=== PATIENT | female | born 1950 | race Caucasian/White ===

== ENCOUNTER 2016-12-20 08:50 | Inpatient (IN) | payer BC ==
[2016-12-20] MEDS ORDERED: Dexamethasone IV* 4 MG/ML 1 ML (4 MG) IV SLOW PU ONE (09:37)
[2016-12-20] MEDS ORDERED: NS 0.9% 1000 ML* 1,000 ML IV ONE ×2 (09:38→12:28)
--- NOTE | 2016-12-20 09:48 | ED ---
Back Pain - HPI Summary HPI Summary: Patient is referred to the ED after undergoing emergent MRI ordered by her spinal doctor Dr. Jade from [place]. According to the patient she has had a year of pain, rash and burning in her left leg that has been evaluated by neurosurgery, dermatology and her PCP without relief. 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 She denies known injury that started this pain. She had an MRI in February 2016 that showed bulging disks but her pain is much worse now. She says she hobbles around, has weakness in the leg and foot drop when she walks. She has had increased urinary urgency and frequency without tami constipation. She denies fevers, chills, or illness otherwise. - History of Current Complaint Chief Complaint: EDBackInjuryPain Stated Complaint: BACK PAIN Time Seen by Provider: 12/20/16 09:02 Hx Obtained From: Patient, Family/Supervisor Shipping Onset/Duration: Gradual Onset, Lasting Weeks, Worse Since - last February Onset/Duration: Atraumatic Timing: Constant Severity Initially: Mild Severity Currently: Severe Pain Intensity: 2 Character: Sharp, Aching, Burning Aggravating Symptom(s): Movement, Bending, Walking Alleviating Symptom(s): Nothing Associated Signs And Symptoms: Positive: Weakness, Numbness, Tingling Related History: Previous Back Injury - Allergies/Home Medications Allergies/Adverse Reactions: Allergies Allergy/AdvReac Type Severity Reaction Status Date / Time Doxycycline Allergy CONGESTION, Verified 12/19/16 14:10 NECK STIFFNESS, THROAT CLOSES Erythromycin Allergy CONGESTION, Verified 12/19/16 14:10 NECK STIFFNESS, THROAT CLOSES Hydromorphone [From Dilaudid] Allergy SEVERE Verified 12/19/16 14:10 DEPRESSED RESPIRATION Prednisone Allergy SEVERE Verified 12/19/16 14:10 ACID REFLUX, ESOPHAGUS EROSION Tetracyclines & Related Allergy CONGESTION, Verified 12/19/16 14:10 NECK STIFFNESS, THROAT CLOSES ENVIRONMENTAL Allergy Unknown Uncoded 12/19/16 14:10 Reaction Details Home Medications: Home Medications Citalopram TAB* [CeleXA TAB*] 40 mg PO DAILY 12/20/16 [History Confirmed ] Gabapentin CAP(*) [Neurontin 300 CAP(*)] 300 mg PO BEDTIME 12/20/16 [History Confirmed 12/20/16] Hydrochlorothiazide TAB* [Hydrodiuril TAB*] 12.5 mg PO DAILY 12/20/16 [History Confirmed 12/20/16] Levalbuterol HFA INHALER* [Xopenex Hfa Inhaler*] 2 puff INH Q6H PRN 12/20/16 [ History Confirmed 12/20/16] Levothyroxine TAB* [Synthroid TAB*] 50 mcg PO QAM 12/20/16 [History Confirmed ] Naproxen Sodium [Naproxen Sodium 220 mg] 220 - 440 mg PO Q8HR PRN 12/20/16 [ History Confirmed 12/20/16] Oxycodone TAB(NF) [Oxycodone HCl 10 MG] 10 mg PO Q6H PRN 12/20/16 [History Confirmed 12/20/16] Verapamil HCl [Verapamil HCl ER] 120 mg PO DAILY 12/20/16 [History Confirmed 03/30] clonazePAM TAB(*) [KlonoPIN TAB(*)] 0.5 mg PO BID 12/20/16 [History Confirmed ] metFORMIN* [Glucophage 500 MG TAB *] 500 mg PO DAILY 12/20/16 [History Confirmed 12/20/16] traZODone TAB* [Desyrel TAB*] 50 mg PO BEDTIME 12/20/16 [History Confirmed 12/20] PMH/Surg Hx/FS Hx/Imm Hx Endocrine/Hematology History: Reports: Hx Diabetes - TREATED, Hx Thyroid Disease - HYPOTHYROIDISM Cardiovascular History: Reports: Hx Coronary Artery Disease - CHOLESTEROL CONTROL WITH MEDICATION, Hx Hypertension - CONTROL WITH MEDICATION Denies: Hx Pacemaker/ICD Respiratory History: Reports: Hx Asthma - RESCUE INHALER GI History: Reports: Hx Gastroesophageal Reflux Disease History: Denies: Hx Renal Disease Musculoskeletal History: Comment Only: Other Musculoskeletal History - FIBROMYALGIA Sensory History: Reports: Hx Contacts or Glasses - WILL WEAR GLASSES DAY OF SURGERY Denies: Hx Hearing Aid Opthamlomology History: Reports: Hx Contacts or Glasses - WILL WEAR GLASSES DAY OF SURGERY Neurological History: Reports: Other Neuro Impairments/Disorders - RUPTURED LOWER BACK Psychiatric History: Reports: Hx Anxiety - CONTROL, Hx Depression Denies: Hx Panic Disorder - Surgical History Surgery Procedure, Year, and Place: 2005 CERVICAL FUSION AT C3,4,5 WITH PLATING , [place]. 1999 SINUS SURGERY REMOVAL OF POLYP, [place]. AGE 18 [place] [facility] [place] [facility] [place] WITHOUT STENTS 2013 Hx Anesthesia Reactions: Yes - SEVERE NAUSEA AND VOMITING, - NONE FOR LAST TWO SURGERIES Infectious Disease History: No Infectious Disease History: Denies: Traveled Outside the [place] in Last 30 Days - Family History Known Family History: Positive: None - Social History Occupation: Unemployed Lives: With Family Alcohol Use: Daily Substance Use Type: Reports: None Smoking Status (MU): Never Smoked Tobacco Review of Systems Positive: frequency, urgency. Negative: incontinence Positive: Myalgia Positive: Rash - left thigh. Negative: Bruising Positive: Weakness, Paresthesia, Numbness All Other Systems Reviewed And Are Negative: Yes Physical Exam Triage Information Reviewed: Yes Vital Signs On Initial Exam: Initial Vitals Temp Pulse Resp BP Pulse Ox 97.0 F 86 20 143/74 99 12/20/16 08:53 12/20/16 08:53 12/20/16 08:53 12/20/16 08:53 12/20/16 08:53 Vital Signs Reviewed: Yes Appearance: Positive: Well-Appearing, Pain Distress, Obese Skin: Positive: Warm, Skin Color Reflects Adequate Perfusion, Dry, Soft Head/Face: Positive: Normal Head/Face Inspection Eyes: Positive: EOMI, CHRISTOPHER, Conjunctiva Clear ENT: Positive: Hearing grossly normal Respiratory/Lung Sounds: Positive: Clear to Auscultation, Breath Sounds Present Cardiovascular: Positive: RRR, Pulses are Symmetrical in both Upper and Lower Extremities Abdomen Description: Positive: Nontender, Soft Bowel Sounds: Positive: Present Musculoskeletal: Positive: Limited @, Pain @. Negative: Edema Left, Edema Right Neurological: Positive: Sensory/Motor Intact, Alert, Oriented to Person Place, Time, Unable to Assess Gait. Negative: NV Bundle Intact Distally Psychiatric: Positive: Affect/Mood Appropriate AVPU Assessment: Alert - Eran Coma Scale Coma Scale Total: 15 Diagnostics - Vital Signs Vital Signs Temp Pulse Resp BP Pulse Ox 12/20/16 09:09 93 11 96 12/20/16 08:57 97.6 F 92 20 143/74 98 12/20/16 08:53 97.0 F 86 20 143/74 99 - Laboratory Result Diagrams: 12/20/16 09:45 12/20/16 09:45 Lab Statement: Any lab studies that have been ordered have been reviewed, and results considered in the medical decision making process. Back Pain Course/Dx - Course Course Of Treatment: Patient's case was discussed with multiple caregivers in multiple facilities to come up with the appropriate course of action given the new finding of neoplasm on her lumbar spine. I first spoke with MRI ordering physician, Dr. Jade, then Dr. Harris, neurosurgery at [facility]; Dr Rivas , [facility] [place]; and finally Dr. Nielsen, [facility] medicine. - Diagnoses Differential Diagnosis/HQI/PQRI: Positive: Aneurysm, Cauda Equina Syndrome, Compressive Cord Syndrome, Epidural Abscess, Fracture, Herniated Disc, Neoplasm , Strain, Sprain Provider Diagnoses: Neoplasm of lumbar spine - Provider Notifications Discussed Care Of Patient With: Dr. Nelson, ED attending Time Discussed With Above Provider: 09:30 Instructed by Provider To: Admit As Inpatient Discharge - Discharge Plan Condition: Fair Disposition: ADMITTED TO [facility]
[2016-12-20 09:55] LABS: Hematocrit 36 % (35-47); Mean Corpuscular HGB Conc 33 g/dl (31-36); Mean Corpuscular Hemoglobin 28 pg (27-31); Mean Corpuscular Volume 85 fL (80-97); Mean Platelet Volume 8 um3 (7.4-10.4); Red Blood Count 4.28 10^6/ul (4.0-5.4); Red Cell Distribution Width 14 % (10.5-15); White Blood Count 9.1 10^3/ul (3.5-10.8)
[2016-12-20 10:12] LABS: BUN/Creatinine Ratio 31.8 (8-20); C Reactive Protein 10.12 mg/L (< 5.00); Calcium 10.1 mg/dL (8.6-10.3); EGFR African American 86.6 (>60); EGFR Non-African American 67.3 (>60); Globulin 2.9 g/dL (2-4); Potassium 4.2 mmol/L (3.5-5.0); Total Bilirubin 0.2 mg/dL (0.2-1.0); Total Protein 6.9 g/dL (6.4-8.9)
[2016-12-20] MEDS ORDERED: Ondansetron INJ* 2 MG/ML VIAL IV ONE (12:28)
[2016-12-20] MEDS ORDERED: Morphine INJ* 4 MG/ML 1 ML SYRINGE IV ONE (12:28)
[2016-12-20] MEDS ORDERED: Iodixanol* (CONTRAST) 320 MG/ML 100 ML SDV IV ONE (14:11)
[2016-12-20] MEDS ORDERED: NS 0.9% 1000 ML* 1,000 ML IV SCH (15:00)
[2016-12-20] MEDS ORDERED: Acetaminophen TAB* 325 MG PO PRN (15:00)
[2016-12-20] MEDS ORDERED: Ondansetron INJ* 2 MG/ML VIAL IV PRN (15:00)
[2016-12-20] MEDS ORDERED: Morphine ORAL CONCENTRATE* 5 MG/0.25 ML ORAL.SYRIN PO PRN (15:08)
[2016-12-20] MEDS ORDERED: Levalbuterol HFA INHALER* 1 PUFF MDI INH PRN (15:08)
[2016-12-20] MEDS ORDERED: Dextrose 50% Syringe 50 ML* 25 GM/50 ML SYRINGE IV PUSH PRN (15:19)
[2016-12-20] MEDS ORDERED: Albuterol 2.5 MG/3 ML NEB.SOL* (0.083%) INH PRN (15:19)
--- NOTE | 2016-12-20 16:32 | HP ---
HISTORY AND PHYSICAL:* ADDENDUM: DATE OF ADMISSION: 12/20/16 Dulce Gonzalez is a 66-year-old female with history of hypertension and diabetes who has had problems with back pain and footdrop for several months now. She was evaluated by the neurosurgeon at [facility] and an MRI was performed which showed soft tissue mass at the left hemivertebral body of L5 with extensive epidural extension with severe narrowing of the central canal. The patient is going to be admitted, evaluated by Radiation Oncology and possibly Neurosurgery if needed and recommended. For further details of the patient's presentation and plan, please see history and physical dictated by Dk Villaseñor on 12/20/16, with which I agree. [id number]/[facility] #: [id number] MTDD
--- NOTE | 2016-12-20 16:49 | HP ---
ATTENDING PHYSICIAN'S ADDENDUM NOW INCLUDED ON THIS REPORT CC: Dr. Wilson; Dr. Rivas; Dr. Combs * HISTORY AND PHYSICAL: DATE OF ADMISSION: 12/20/16 PRIMARY CARE PROVIDER: Dr. Wilson. ATTENDING PHYSICIAN WHILE IN THE HOSPITAL: Dr. Meghna Nielsen * (report dictated by Dk Villaseñor NP). CONSULTING ONCOLOGIST: Dr. Rivas. CONSULTING RADIATION ONCOLOGIST: Dr. Combs. CHIEF COMPLAINT: 1. Back pain. 2. Abnormal MRI. HISTORY OF PRESENT ILLNESS: Ms. Gonzalez is a 66-year-old female patient. She has a history of hypothyroidism, hypertension, diabetes, asthma, also carries a history of hyperlipidemia. She comes in to the ER today stating that for the last year, better part of the year, she has been dealing with having back discomfort and mostly in the lower back, shooting down the left leg with an associated rash off and on to the left lower extremity as well. She states that she had been following closely with Dr. Wilson. She had been evaluated by Dr. Lynn this past , was given epidural injections which seemed to be helping the pain. She says that on November 19, she noticed that the second epidural made things worse. She felt that she was having actually new pain in her sacrum and tailbone area. She was evaluated by Dr. Wilson beginning of the week here. The sacral area was palpated by Dr. Wilson. The patient had experienced intense pain and she was referred for a repeat MRI. She had had an MRI previously in February 2016 and the patient though because of newer symptoms was referred for a repeat MRI, which she underwent today, and ultimately they found a tumor in the L5 area. The patient denied having any weakness to the extremities. She denied having any urinary symptoms. She denied having any weakness to the lower extremities. She does state that she has been having difficulty walking the last 2 months that her legs do become weak on her after walking. She denied any chest pain. No fevers. No chills. She denied having any abdominal pain. Because of progression of the symptoms, worsening of the symptoms, and the new findings on the MRI, particularly this lumbar mass and the fact that she was having increasing pain, we were asked to evaluate on admission. PAST MEDICAL HISTORY: Significant for: 1. Hypothyroidism. 2. Hypertension. 3. Diabetes. 4. Asthma. 5. Hyperlipidemia. PAST SURGICAL HISTORY: She has had a cervical spine fusion. HOME MEDICATIONS: Include: 1. Xopenex 2 puffs inhaled every 6 hours as needed. 2. Naproxen 1 to 2 tablets every 8 hours as needed. 3. Verapamil 120 mg daily. 4. Glucophage 500 mg daily. 5. Celexa 40 mg daily. 6. Clonazepam 0.5 mg p.o. b.i.d. 7. Hydrochlorothiazide 12.5 mg daily. 8. Synthroid 50 mcg daily. 9. Oxycodone 10 mg every 6 hours as needed. 10. Gabapentin 300 mg p.o. bedtime. 11. Trazodone 50 mg daily. ALLERGIES TO MEDICATIONS: Include DOXY, ERYTHROMYCIN, DILAUDID, PREDNISONE, and TETRACYCLINE. FAMILY HISTORY: Reviewed and noncontributory. SOCIAL HISTORY: She does not smoke. She occasionally drinks alcohol. She is . Surrogate decision maker is her . REVIEW OF SYSTEMS: There is no documented fever. She denied having any significant weight change. There was no double vision. She denies having any ear discharge. There is no rhinorrhea. No sore throat. No thyroid enlargement. She denies having any chest pain. There is no orthopnea. No nocturnal dyspnea. There is no abdominal pain. No nausea. No vomiting. No dysuria. No loss of consciousness. No pruritus and no skin ulcerations. Review of 14 systems completed, all others negative. PHYSICAL EXAMINATION GENERAL: At this time, Ms. Gonzalez is a 66-year-old female patient. She is sitting in the ER stretcher. She does not appear to be in any acute distress. VITAL SIGNS: Blood pressure 153/59, pulse 104, respirations 18, O2 sat 98%, and temperature 97.6. HEENT: Head is atraumatic and normocephalic. Eyes: EOMs are intact. Sclerae anicteric and not pale. Throat: Oral mucosa appears to be moist. No oropharyngeal erythema. NECK: Supple. LUNGS: Clear to auscultation bilaterally. No wheezes, rales, or rhonchi. HEART: Sounds S1, S2. Regular rate and rhythm. She is tachycardic. ABDOMEN: Soft, flat, and nontender. Bowel sounds present. EXTREMITIES: Pulses 2+ throughout. She actually is able to move all 4 extremities when lying in the bed. She had 5/5 strength throughout. RECTAL: She had good rectal tone. NEUROLOGIC: She is awake, alert. She is oriented x3. Her tongue is midline. Information Systems Administrator are equal. She had no gross focal deficits. SKIN: Intact. She does have a rash noted to the left lower extremity and you can see excoriations from scratching. It appears to be healing rash at this point. No vesicles were noted and no sloughing of the skin. LABORATORY DATA AND DIAGNOSTIC STUDIES: Today revealed a WBC of 9.1, RBC of 4.28, hemoglobin 12.0, hematocrit 36, platelet count of 424. The sodium was 134 , potassium 4.2, chloride was 97, bicarb 28, BUN 27, creatinine 0.85, glucose 109, calcium 10.1. Total bili 0.2, AST 22, ALT 18, CRP of 10. Albumin 4. She did have a lumbar spine MRI which revealed impression: There is soft tissue mass consistent with neoplasm centered within the left hemivertebral body of L5 with extensive epidural extension with severe narrowing of the central canal at L3- 4, L4-5, to a lesser extent at L5-S1, associated foraminal extension of the tumor with multilevel foraminal narrowing described above. The findings were discussed with Dr. Bowie at approximately 8:50 a.m. Old medical records were reviewed. ASSESSMENT AND PLAN: Ms. Gonzalez is a 66-year-old female patient coming in to the ER today with complaints of back pain and now found to have an abnormal MRI. Hospitalist service was asked to evaluate for admission. She will be admitted under inpatient status for: 1. Spinal lesion concerning for neoplasm: At this point, I did touch base with Dr. Combs and Dr. Rivas who both will be evaluating the patient. Dr. Rivas felt that neurosurgeon does not need to be evaluating currently. She is not having any motor deficits at this point. The plan is to get a CT of the abdomen and pelvis to make sure that there is not any other primary site. Unfortunately, if this is a lymphoma, giving steroids may be the treatment, and actually may make it harder or near impossible to get a biopsy site. So, at this point, I did put in for a CT- guided biopsy with Dr. Li, which Dr. Rivas spoke to Dr. Politi about this. We ordered a CT of the chest, abdomen, and pelvis to see if there is any other site that could be biopsied. Dr. Rivas and Dr. Combs will be evaluating. 2. Hypothyroidism: Continue Synthroid. 3. Hypertension: Continue her verapamil. I am holding the hydrochlorothiazide. 4. Diabetes: We will put her on lispro sliding scale. 5. Asthma: P.r.n. Albuterol has been ordered. 6. Hyperlipidemia: Continue current medical regimen. 7. DVT prophylaxis: She is high risk. She will be placed on heparin subcu. 8. Code status: Full code. TIME SPENT: Time spent on the admission was approximately 70 minutes; greater than half the time was spent face to face with the patient obtaining my history and physical, other half the time spent going over the plan of care with the patient and implementing plan of care. I did discuss the plan of care with my attending, Dr. Nielsen; she is in agreement. DK VILLASEÑOR NP ADDENDUM: DATE OF ADMISSION: 12/20/16 Dulce Gonzalez is a 66-year-old female with history of hypertension and diabetes who has had problems with back pain and footdrop for several months now. She was evaluated by the neurosurgeon at [place] and an MRI was performed which showed soft tissue mass at the left hemivertebral body of L5 with extensive epidural extension with severe narrowing of the central canal. The patient is going to be admitted, evaluated by Radiation Oncology and possibly Neurosurgery if needed and recommended. For further details of the patient's presentation and plan, please see history and physical dictated by Dk Villaseñor on 12/20/16, with which I agree. MEGHNA NIELSEN MD [id number]/[facility] #: [id number]/[facility] #: [id number] MYLES
[2016-12-20] MEDS: Morphine ORAL.SOLN 10 mg* 2 MG/ML UDC 5 ml PO PRN (17:17)
--- NOTE | 2016-12-20 17:58 | RAD ---
INDICATION: New mass L3 S1 of evaluate for primary tumor. COMPARISON: Correlation is made with a prior CT of the pelvis from March 06, 2016. TECHNIQUE: A CT scan of the chest, abdomen and pelvis was performed with intravenous and oral contrast following intravenous injection of 100 ml of Visipaque 320 nonionic contrast. Contiguous axial sections were obtained from the lung apices through the symphysis pubis. Images were reconstructed in the coronal and sagittal planes. FINDINGS: There is atelectasis present at both lung bases. The lungs are otherwise clear. No pleural effusion is present. No significant enlarged mediastinal or hilar lymph nodes are seen. The heart is within normal limits in size. No pericardial effusion is present. The thoracic aorta is normal in caliber. The liver and spleen are normal in size without significant focal abnormality. The liver is decreased in attenuation consistent with fatty infiltration. No calcific gallstones are seen. The pancreas appears to be within normal limits. The kidneys and adrenal glands appear normal in size. There is mild dilatation of the right renal calyces, pelvis and ureter consistent with mild hydronephrosis. No calculus or mass is seen. The urinary bladder appears to be within normal limits. No significant focal renal abnormality is seen. The aorta is normal in caliber and demonstrates homogeneous contrast opacification. No significant enlarged mesenteric, retroperitoneal or inguinal lymph nodes are seen. The stomach, small and large bowel appear nondistended. There is a moderate amount of retained stool present. There is a small periumbilical hernia containing fat. The uterus is normal in size and retroverted. No free intraperitoneal air or fluid is seen. The mass noted within the L4 vertebra and spinal canal at the L3-L4 and L4-L5 levels on the prior MRI study is not well visualized. Although there is decreased density and infiltration of the left L4 transverse process and likely a pathologic fracture of the transverse process. There is enlargement of the posterior aspect of the left psoas muscle correlating with the mass seen on the prior MRI study. There is heterogeneous density present in the upper portion of the body of the sternum which is nonspecific although may represent metastatic disease. No other focal osseous abnormalities are seen. IMPRESSION: 1. THE MASS SEEN IN THE L4 VERTEBRA IS BETTER SEEN ON THE MRI STUDY ALTHOUGH THERE IS DECREASED DENSITY AND LIKELY A PATHOLOGIC FRACTURE OF THE L4 TRANSVERSE PROCESS. THERE APPEARS TO BE EXTENSION OF DISEASE INTO THE LEFT PSOAS MUSCLE ALSO BETTER SEEN ON THE MRI STUDY. 2. THERE IS HETEROGENEOUS DENSITY IN THE STERNUM WHICH IS NONSPECIFIC ALTHOUGH MAY REPRESENT METASTATIC DISEASE. 3. MILD RIGHT HYDRONEPHROSIS WITHOUT EVIDENCE FOR CALCULUS OR MASS.
[2016-12-20] MEDS: Insulin LISPRO* 1 UNITS UNIT SUBCUT SCH (18:29)
[2016-12-20] MEDS ORDERED: Naproxen TAB* 250 MG ONE (18:49)
[2016-12-20] MEDS ORDERED: Naproxen TAB* 250 MG PO PRN (18:49)
[2016-12-20] MEDS: clonazePAM TAB(*) 0.5 MG PO SCH (20:32)
[2016-12-20] MEDS: traZODone TAB* 50 MG TAB PO SCH (20:33)
[2016-12-20] MEDS ORDERED: Senna TAB PO PRN (20:39)
[2016-12-20] MEDS ORDERED: Magnesium Hydroxide LIQ* 30 ML UDC PO ONE (20:39)
[2016-12-20] MEDS ORDERED: Gabapentin CAP(*) 300 MG PO SCH (21:00)
[2016-12-20] MEDS: Docusate CAP* 100 MG PO SCH (21:09)
[2016-12-20] MEDS: Cetirizine* 10 MG TAB PO SCH (21:09)
[2016-12-20] MEDS: Morphine INJ* 4 MG/ML 1 ML SYRINGE IV PRN (21:17)
--- NOTE | 2016-12-20 21:56 | CONS ---
CC: Dr. Wilson * CONSULTATION: DATE OF CONSULT: 12/20/16 REFERRING PHYSICIAN: Dk Villaseñor NP PRIMARY CARE: Dr. Wilson. REASON FOR CONSULTATION: Lumbar spine mass. HISTORY OF PRESENT ILLNESS: This is a 66-year-old female who developed pain in her left hip in January 2016. Originally thought to be a groin pull. She has pain that was in the hip, going down to the knees and going down to the foot. It can be very severe, 10/10 in intensity. She initially saw Dr. Wilson and was referred to pain clinic and Orthopedics within [place]. She had an MRI on 03/12/16 of the lumbar spine. Question of disk disease, but no bony lesions. No evidence of malignancy. She was treated conservatively with physical therapy , but this had only marginal success. By fall, she had been getting by and doing most of her daily activities. She went to [place] and then came back in September 2016. By the time she came back in September, it became difficult to walk and the pain became much more severe. It felt like it was two steps forward, one step back. She was seen by Dr. Guerin who ultimately performed spinal injections in October 2016. This seemed to work and on injection of the L3-L4 vertebral body, she had immediate relief of her pain down the leg. Unfortunately, several weeks later, pain recurred across her back into the abdomen and then again in the left hip. Pain again was very severe and not responding to medications. She had been taking Aleve 3 tablets 4 times a day, oxycodone 10 mg every 4 to 6 hours as well as Neurontin 600 mg every 4 to 6 hours and clonazepam 0.5 mg twice a day. Additionally, she started to develop difficulty walking approximately 2 to 3 weeks ago. Weakness on both sides, more on the left. Would take 4 steps and then lose her strength. She developed urinary urgency over the last 2 weeks, but still does have control of her urine. She has not had any changes in her bowel movements except for constipation associated with the narcotics. She has not had any fevers or chills, but she has had night sweats on starting oxycodone. She has lost 14 pounds since September and has a poor appetite. No shortness of breath. No chest pain. Also, she has a rash going down her left leg and up across her back on both sides. It is a papular rash that can be itchy. It started back in January 2016 with the pain and has never fully resolved. PAST MEDICAL HISTORY: 1. Diabetes. 2. Hypertension. 3. Arthritis. 4. Hypothyroidism. 5. Asthma. SURGERIES: 1. She had a C-spine fusion in 2013 after an accident. 2. She had a cardiac catheterization. MEDICATIONS: 1. Xopenex 2 puffs every 6 hours as needed. 2. Naproxen 1 to 2 tablets every 8 hours as needed, taking every 4 hours. 3. Verapamil 120 mg daily. 4. Glucophage 500 mg daily. 5. Celexa 40 mg daily. 6. Clonazepam 0.5 mg b.i.d. 7. Hydrochlorothiazide 12.5 daily. 8. Synthroid 50 mcg daily. 9. Oxycodone 10 mg every 6 hours, taking every 4. 10. Gabapentin 600 mg twice a day. 11. Trazodone 50 mg at bedtime. ALLERGIES: ERYTHROMYCIN, DOXYCYCLINE, DILAUDID, PREDNISONE, and TETRACYCLINE. FAMILY HISTORY: Extensive malignancy on her mother's side. Maternal grandmother had gallbladder cancer. Mother has 12 siblings, three of whom had breast cancer, three of whom had advanced skin cancer, one of whom had liver cancer, and one had a brain cancer. On the father's side, there is a history of smoking related to malignancy. SOCIAL HISTORY: , here with her son and she has 3 children. Does not smoke. Drinks only occasionally. 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 REVIEW OF SYSTEMS: As discussed in the HPI. Otherwise, 14-point review is negative. PHYSICAL EXAM: BP 152/59, pulse 104, respirations 18, sat 98%, temperature 97.6. HEENT: Oral mucosa moist. No active dental disease. No cervical or supraclavicular lymphadenopathy. Pupils are equal, round, and reactive to light. Lungs: Clear to auscultation. Heart: Regular rate and rhythm. S1, S2. No murmurs, rubs, or gallops. Abdomen: Nontender, nondistended. Good bowel sounds. No hepatosplenomegaly. Extremities: Good pulses, no edema. Skin : She has a diffuse papular rash, both on the left leg going up to the back and crossing the midline. She has itch cisneros on the back. No ulceration. Rectal: Deferred, but documented normal rectal tone on Dk Villaseñor's exam. Neurologic: She has strength of 5/5 on focal exam in all 4 extremities. Did not walk her. We did not test proximal muscle strength intensely. Neurologic: Alert and oriented x3. Grossly nonfocal. DIAGNOSTIC STUDIES/LAB DATA: She has normal counts with a hemoglobin of 12, creatinine 0.85, mildly elevated glucose, C-reactive protein of 10, and normal LFTs. She has white and red cells as well as trace esterase in the urine. CT of the chest, abdomen, and pelvis shows a mass in the L4 vertebral body seen on the MRI study as well as an L4 transverse process fracture and extension of disease into the left psoas muscle, called heterogeneity in the sternum, which is nonspecific and a mild right hydronephrosis without evidence of mass. 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 Extension of tumor to L5-S1 foramina. No other disease on the MRI. ASSESSMENT AND PLAN: A 66-year-old female with 1 year of pain, progressive, functional symptoms over the past 3 weeks who was found to have a bone lesion at L4- L5 with into muscle and into the area of the spinal cord. It appears to affect the cauda equina nerves. She has had very severe pain, not responding to multiple [id number] medications. Differential diagnosis includes sarcoma, metastatic solid tumor though no source found on the CT, lymphoma, plasmacytoma, multiple myeloma, T-cell lymphoma. 1. Case was reviewed with Dr. Li and Dr. Combs at length. We will need to get a biopsy on Friday morning and the mass on the lumbar spine is amenable to CT- guided biopsy. 2. I am concerned about giving steroids because if it is a lymphoma or myeloma , we may hamper our ability to make a diagnosis and provide comprehensive treatment. We will watch her neurologic symptoms over the weekend and try to avoid intervention. 3. CT scan essentially negative for disease outside of the lumbar spine, questionable sternal lesion. Ultimately, we will benefit from the PET scan as an outpatient. 4. For pain control, I would continue naproxen, but at a rational dose, 500 b.i.d. Continue Neurontin 600 b.i.d. Recommend morphine SR at 30 mg b.i.d. and then Dilaudid IV p.r.n. Hold Alejulissa on Friday for a biopsy on Friday. May be difficult to control pain if it is neuropathic from the mass. 5. We will send blood work today including SPEP, ESR, LDH, beta-2 microglobulin , serum free light chains, solid tumor tumor markers including CA 19-9, CEA, and CA- 125. 6. Continue to follow through the hospitalization. Possible radiation therapy on Friday after biopsy. [id number]/[facility] #: [id number] MTDD
[2016-12-20] MEDS ORDERED: Heparin VIAL(*) 5000 UNITS/ML VIAL (FIVE THOUSAND) SUBCUT SCH (22:00)
--- NOTE | 2016-12-21 02:41 | RADMED ---
CC: Dr. Rivas; Dr. Lori Wilson RADIATION ONCOLOGY CONSULTATION NOTE: DATE OF CONSULT: 12/20/16 DIAGNOSES: Back pain and lumbar spine lesion suspicious for malignancy. HISTORY OF PRESENT ILLNESS: Ms. Gonzalez is a 66-year-old woman with a history of back pain over more than a year. She has received steroid injections with some relief, but over the past 4 months, has had progressive symptoms with leg weakness and worsening radicular pain along with a rash on the left thigh and low back that waxes and wanes. With progression of symptoms, MRI scan of the lumbar spine was obtained this morning, identifying an extensive soft tissue mass around the left side of the lower lumbar spine approximately L5 level with paraspinal component and extension through the nerve roots wrapping around the cauda equina in the epidural space. She was evaluated through the emergency department and is being admitted to the hospital for further evaluation. CT scan of the chest, abdomen, and pelvis has been obtained and I did review along with Dr. Li, with a superficial reading showing no other obvious substantial findings to suggest widespread malignancy. She reports that she is up-to-date on colonoscopy and mammography, and has no known history of malignancy herself. No complaints with regard to urinary or bowel function, some numbness reported in a radicular pattern down the left leg. PAST MEDICAL HISTORY: Hypothyroidism, hypertension, diabetes, asthma, hyperlipidemia, back pain, spine surgery. MEDICATIONS: 1. Xopenex. 2. Naproxen. 3. Verapamil. 4. Glucophage. 5. Celexa. 6. Clonazepam. 7. Hydrochlorothiazide. 8. Synthroid. 9. Oxycodone. 10. Gabapentin. 11. Trazodone. ALLERGIES: TETRACYCLINE, ERYTHROMYCIN, DILAUDID, PREDNISONE. FAMILY HISTORY: Significant for her mother with history of skin cancer, and no other history of malignancy in her first-degree relatives, although there is significant cancer history on her mother's side of the family in more distant relatives. SOCIAL HISTORY: She is accompanied by her family, who are quite supportive. She is a nonsmoker, and drinks alcohol occasionally. REVIEW OF SYSTEMS: As in the history of present illness; otherwise, a complete review of systems is obtained from the patient, negative for additional significant findings. PHYSICAL EXAM: Vital Signs: Temperature 97.6, pulse rate 106, respiratory rate 18, oxygen saturation 93% on room air, blood pressure 153/69. In general, she is awake, alert, oriented, in no distress. Normocephalic, atraumatic. Sclerae are anicteric. Neck is supple with full range of motion. Midline trachea. No masses palpable in the neck or thyroid. Lungs: Symmetric air entry bilaterally. Cardiovascular: S1 and S2, tachycardic. Abdomen: Soft and nontender. No masses, no organomegaly. Extremities: No cyanosis, clubbing, or edema. There is a papular/vesicular rash involving the low back, left buttock, and left thigh with areas of excoriation and hyperpigmentation. Neurologic: Cranial nerves II through XII are intact. Strength is symmetric in proximal and distal muscle groups in the upper extremities, and in the lower extremities, somewhat limited by pain but she is able to produce resistance throughout, perhaps some weakness with hip flexion. Gait and balance not assessed. Cognition and memory are within normal limits. RADIOLOGY: Reviewed as in the history of present illness. ASSESSMENT AND PLAN: Dulce Gonzalez is a 66-year-old woman with gradual onset of severe low back pain with radicular component and some element of weakness and MRI showing significant soft tissue mass around the left side of the lumbar spine suspicious for malignancy. I did review her history as well as the radiographic findings, and discussed at some length with the patient and her family. With no known malignancy, and no other findings on CT to suggest a more extensive cancer problem, or other sites where a biopsy could be obtained, I do think the most important issue is to obtain pathological specimen and assess the etiology of this lesion. There is even probably some potential for nonmalignant causes, and knowing the type of cancer could help guide therapy, which should be provided as quickly as possible with her pain level as well as invasion around the cauda equina. I briefly explained the potential role for palliative radiation therapy and the logistics and rationale for treatment and would review in greater detail if we were to undertake a course of radiation after a malignant diagnosis was established. In the meantime, pain management has been undertaken with relative success thus far by her report. I will follow up on any results and did discuss with Dr. Rivas and Dr. Li in terms of coordinating care. Thank you for giving me the opportunity to participate in the care of this very pleasant patient. [id number]/[facility] #: [id number] MYLES
[2016-12-21] MEDS: Morphine INJ* 4 MG/ML 1 ML SYRINGE IV PRN ×4 (06:21→21:30)
[2016-12-21 06:51] LABS: Urine Bacteria 1+ (Absent); Urine Bilirubin Negative (Negative); Urine Glucose Negative (Negative); Urine Nitrite Positive (Negative)
[2016-12-21 07:25] LABS: Hematocrit 35 % (35-47); Hemoglobin 11.6 g/dl (12.0-16.0); Mean Corpuscular HGB Conc 33 g/dl (31-36); Mean Corpuscular Hemoglobin 28 pg (27-31); Mean Corpuscular Volume 85 fL (80-97); Mean Platelet Volume 8 um3 (7.4-10.4); Red Blood Count 4.14 10^6/ul (4.0-5.4); Red Cell Distribution Width 15 % (10.5-15); White Blood Count 8.4 10^3/ul (3.5-10.8)
[2016-12-21 07:35] LABS: BUN/Creatinine Ratio 24.6 (8-20); Calcium 9.4 mg/dL (8.6-10.3); EGFR Non-African American 91.8 (>60); Potassium 3.6 mmol/L (3.5-5.0)
[2016-12-21] MEDS: Insulin LISPRO* 1 UNITS UNIT SUBCUT SCH ×3 (07:37→17:18)
[2016-12-21] MEDS: Docusate CAP* 100 MG PO SCH ×2 (08:41→20:58)
[2016-12-21] MEDS: clonazePAM TAB(*) 0.5 MG PO SCH ×2 (08:41→20:59)
[2016-12-21] MEDS: Verapamil SR TAB* 240 MG PO SCH (08:41)
[2016-12-21] MEDS: Citalopram TAB* 40 MG PO SCH (08:41)
[2016-12-21] MEDS: Levothyroxine TAB* 50 MCG TAB PO SCH (08:45)
--- NOTE | 2016-12-21 10:30 | PN ---
Subjective Date of Service: 12/21/16 Interval History: Patient seen and examined at bedside. She reports that IV morphine did help with pain control last night. However, the bed caused significant back pain. Patient now OOB to recliner. Still reporting shooting pain in legs, as well as severe pain to lower back. Denies CP, SOB, abd pain, dysuria. Reports rash is improving. Family History: Unchanged from Admission Social History: Unchanged from Admission Past Medical History: Unchanged from Admission Objective Active Medications: Acetaminophen (Tylenol Tab*) 650 mg PO Q4H PRN PRN Reason: FEVER/PAIN Albuterol (Ventolin 2.5 Mg/3 Ml Neb.Clotilde*) 2.5 mg INH Q2H PRN PRN Reason: SOB/WHEEZING Cetirizine HCl (Zyrtec*) 10 mg PO BEDTIME [facility] Last Admin: 12/20/16 21:09 Dose: 10 mg Citalopram Hydrobromide (Celexa Tab*) 40 mg PO DAILY [facility] Last Admin: 12/21/16 08:41 Dose: 40 mg Clonazepam (Klonopin Tab(*)) 0.5 mg PO BID [facility] Last Admin: 12/21/16 08:41 Dose: 0.5 mg Dextrose (D50w Syringe 50 Ml*) 12.5 gm IV PUSH .FOR FS < 60 - SS PRN PRN Reason: FS < 60 Docusate Sodium (Colace Cap*) 100 mg PO BID [facility] Last Admin: 12/21/16 08:41 Dose: 100 mg Gabapentin (Neurontin Cap(*)) 300 mg PO BID [facility] Sodium Chloride (Ns 0.9% 1000 Ml*) 1,000 mls @ 100 mls/hr IV PER RATE [facility] Last Admin: 12/20/16 18:30 Dose: 100 mls/hr Ceftriaxone Sodium 1,000 mg/ (Sodium Chloride) 50 mls @ 200 mls/hr IVPB Q24H [facility] Insulin Human Lispro (Humalog*) 0 units SUBCUT AC [facility] PRN Reason: Protocol Last Admin: 12/21/16 07:37 Dose: Not Given Levalbuterol HCl (Xopenex Hfa Inhaler*) 2 puff INH Q6H PRN PRN Reason: SHORTNESS OF BREATH Levothyroxine Sodium (Synthroid Tab*) 50 mcg PO QAM@0600 [facility] Last Admin: 12/21/16 08:45 Dose: 50 mcg Morphine Sulfate (Morphine Inj (Syringe)*) 4 mg IV Q4H PRN PRN Reason: PAIN Last Admin: 12/21/16 10:23 Dose: 4 mg Morphine Sulfate (Morphine Oral.Soln 10 Mg*) 5 mg PO Q6H PRN PRN Reason: PAIN Last Admin: 12/20/16 17:17 Dose: 5 mg Morphine Sulfate (Ms Contin(*)) 30 mg PO Q12H [facility] Naproxen (Naprosyn Tab*) 250 mg PO Q6H PRN PRN Reason: PAIN/HEADACHE Last Admin: 12/20/16 18:53 Dose: 250 mg Ondansetron HCl (Zofran Inj*) 4 mg IV Q6H PRN PRN Reason: NAUSEA Senna (Senokot Tab*) 2 tab PO BEDTIME PRN PRN Reason: CONSTIPATION Last Admin: 12/20/16 21:09 Dose: 2 tab Trazodone HCl (Desyrel Tab*) 50 mg PO BEDTIME [facility] Last Admin: 12/20/16 20:33 Dose: 50 mg Verapamil HCl (Calan Sr Tab*) 120 mg PO DAILY [facility] Last Admin: 12/21/16 08:41 Dose: 120 mg Vital Signs 12/20/16 12/20/16 12/20/16 15:00 15:30 16:08 Temperature Pulse Rate 105 112 Respiratory 18 Rate Blood Pressure 153/69 142/61 (mmHg) O2 Sat by Pulse 93 93 Oximetry 12/20/16 12/20/16 12/20/16 17:17 18:04 18:07 Temperature 98.5 F 98.5 F Pulse Rate 112 112 Respiratory 18 20 20 Rate Blood Pressure 145/76 145/76 (mmHg) O2 Sat by Pulse 95 95 Oximetry 12/20/16 12/20/16 12/20/16 20:00 20:27 20:32 Temperature Pulse Rate 100 Respiratory 20 18 20 Rate Blood Pressure (mmHg) O2 Sat by Pulse 96 Oximetry 12/20/16 12/20/16 12/20/16 20:33 21:17 22:17 Temperature Pulse Rate Respiratory 20 19 19 Rate Blood Pressure (mmHg) O2 Sat by Pulse Oximetry 12/20/16 12/20/16 12/20/16 22:32 22:33 23:54 Temperature 98.0 F Pulse Rate 98 Respiratory 19 19 16 Rate Blood Pressure 121/69 (mmHg) O2 Sat by Pulse 95 Oximetry 12/21/16 12/21/16 12/21/16 04:09 06:21 07:14 Temperature 97.6 F 97.7 F Pulse Rate 79 78 Respiratory 16 20 18 Rate Blood Pressure 115/64 118/65 (mmHg) O2 Sat by Pulse 95 98 Oximetry 12/21/16 12/21/16 12/21/16 07:31 08:40 08:41 Temperature Pulse Rate 78 Respiratory 18 18 18 Rate Blood Pressure (mmHg) O2 Sat by Pulse 98 Oximetry 12/21/16 10:23 Temperature Pulse Rate Respiratory 20 Rate Blood Pressure (mmHg) O2 Sat by Pulse Oximetry Oxygen Devices in Use Now: None Appearance: Middle aged female, OOB to chair, NAD Eyes: PERRLA Ears/Nose/Mouth/Throat: Mucous Membranes Moist Neck: NL Appearance and Movements; NL JVP Respiratory: Symmetrical Chest Expansion and Respiratory Effort, Clear to Auscultation Cardiovascular: NL Sounds; No Murmurs; No JVD, RRR Abdominal: NL Sounds; No Tenderness; No Distention Extremities: No Edema Skin: - - excoriation to low back and upper left thigh, papular rash present, no vesicles noted Neurological: Alert and Oriented x 3, NL Muscle Strength and Tone Lines/Tubes/Other Access: Clean, Dry and Intact Peripheral IV Nutrition: Taking PO's Result Diagrams: 12/21/16 06:51 12/21/16 06:51 Diagnostic Imaging: Lumbar spine MRI: 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 Assess/Plan/Problems-Billing Assessment: Ms. Gonzalez is a 66 yo female with a PMH of hypothyroidism, HTN, DM, asthma, and HLD who presented to the ED on 12/20/16 with concern for back pain and abnormal lumbar spine MRI which revealed a soft tissue mass. - Patient Problems (1) Spinal cord lesion Code(s): G95.9 - DISEASE OF SPINAL CORD, UNSPECIFIED Comment: Concern for neoplasm, appreciate oncology and radiation oncology consults. At this time, continue with pain management and medication titration. Will hold on steroid treatment, as this could adversely affect oncology workup. Plan for CT guided biopsy on Friday, potential RT if indicated. Increase gabapentin today. Start morphine SR. Continue IV morphine for breakthrough pain (adverse reaction to hydromorphone). Hold naproxen tomorrow in anticipation of biopsy on Friday. (2) UTI (urinary tract infection) Comment: UA positive for nitrates and 3+ leukocyte esterase Start ceftriaxone. (3) Rash Code(s): R21 - RASH AND OTHER NONSPECIFIC SKIN ERUPTION Comment: Papular rash to lower back left buttock and lateral left thigh, rash does cross midline of back. Start prn hydroxyzine, Benadryl cream, Eucerin (4) Hypothyroidism Code(s): E03.9 - HYPOTHYROIDISM, UNSPECIFIED Comment: Continue levothyroxine. (5) HTN (hypertension) Code(s): I10 - ESSENTIAL (PRIMARY) HYPERTENSION Comment: Normotensive Continue verapamil. (6) Diabetes mellitus Code(s): E11.9 - TYPE 2 DIABETES MELLITUS WITHOUT COMPLICATIONS Comment: Controlled. Continue Lispro SSI. (7) HLD (hyperlipidemia) Code(s): E78.5 - HYPERLIPIDEMIA, UNSPECIFIED Comment: Diet controlled Continue heart healthy diet. (8) Asthma Code(s): J45.909 - UNSPECIFIED ASTHMA, UNCOMPLICATED Comment: Stable Continue prn Xopenex and albuterol (9) DVT prophylaxis Comment: MADHURI bill and SCDs Resume anticoagulation following biopsy. Status and Disposition: Inpatient admission. Plan for biopsy of mass on Friday.
[2016-12-21] MEDS: Morphine TAB Extended Release (*) 30 MG TAB.ER PO SCH ×2 (11:01→23:18)
[2016-12-21] MEDS: Gabapentin CAP(*) 300 MG PO SCH ×2 (11:01→20:58)
[2016-12-21] MEDS: cefTRIAXone VIAL(*) 1,000 MG in NS 0.9% 50 ML* 50 ML IVPB SCH (11:02)
[2016-12-21] MEDS ORDERED: Enoxaparin(*) 40 MG/0.4 ML SYR SUBCUT ONE (16:59)
[2016-12-21] MEDS ORDERED: hydrOXYzine HCL TAB* 25 MG PO PRN (18:05)
[2016-12-21] MEDS: traZODone TAB* 50 MG TAB PO SCH (20:58)
[2016-12-21] MEDS: Moisturizing CREAM* 113 GM JAR TOPICAL SCH (20:58)
[2016-12-21] MEDS: Cetirizine* 10 MG TAB PO SCH (20:58)
[2016-12-21] MEDS ORDERED: DIPHENHYDRAMINE 2% TOPICAL SCH (21:00)
[2016-12-22] MEDS: Levothyroxine TAB* 50 MCG TAB PO SCH (05:40)
[2016-12-22] MEDS: Insulin LISPRO* 1 UNITS UNIT SUBCUT SCH ×3 (07:52→17:22)
[2016-12-22] MEDS: Morphine INJ* 4 MG/ML 1 ML SYRINGE IV PRN ×3 (07:55→19:39)
[2016-12-22] MEDS: Verapamil SR TAB* 240 MG PO SCH (07:57)
[2016-12-22] MEDS: Docusate CAP* 100 MG PO SCH ×2 (07:57→20:26)
[2016-12-22] MEDS: Citalopram TAB* 40 MG PO SCH (07:57)
[2016-12-22] MEDS: Gabapentin CAP(*) 300 MG PO SCH ×2 (07:57→20:25)
[2016-12-22] MEDS: clonazePAM TAB(*) 0.5 MG PO SCH ×2 (07:58→20:26)
[2016-12-22] MEDS: Moisturizing CREAM* 113 GM JAR TOPICAL SCH ×3 (07:58→20:28)
--- NOTE | 2016-12-22 09:21 | PN ---
Subjective Date of Service: 12/22/16 Interval History: Patient seen and examined at bedside. Currently reporting pain to right buttock and down the leg. States that the morphine SR has been helping. Reports improvement in itching with Eucerin cream, feels her skin is very dry. Reports dry, sensitive skin at baseline and uses mild soaps and emollients. Denies any new lotions, soaps, detergents, to cause skin rash. Denies fever/chills, CP, SOB, or other new complaint. Family History: Unchanged from Admission Social History: Unchanged from Admission Past Medical History: Unchanged from Admission Objective Active Medications: Acetaminophen (Tylenol Tab*) 650 mg PO Q4H PRN PRN Reason: FEVER/PAIN Albuterol (Ventolin 2.5 Mg/3 Ml Neb.Clotilde*) 2.5 mg INH Q2H PRN PRN Reason: SOB/WHEEZING Cetirizine HCl (Zyrtec*) 10 mg PO BEDTIME [facility] Last Admin: 12/21/16 20:58 Dose: 10 mg Citalopram Hydrobromide (Celexa Tab*) 40 mg PO DAILY [facility] Last Admin: 12/22/16 07:57 Dose: 40 mg Clonazepam (Klonopin Tab(*)) 0.5 mg PO BID [facility] Last Admin: 12/22/16 07:58 Dose: 0.5 mg Dextrose (D50w Syringe 50 Ml*) 12.5 gm IV PUSH .FOR FS < 60 - SS PRN PRN Reason: FS < 60 Docusate Sodium (Colace Cap*) 100 mg PO BID [facility] Last Admin: 12/22/16 07:57 Dose: 100 mg Gabapentin (Neurontin Cap(*)) 300 mg PO BID [facility] Last Admin: 12/22/16 07:57 Dose: 300 mg Hydrocortisone (Hytone Cream 1%*) 1 applic TOPICAL QID [facility] Hydroxyzine HCl (Atarax Tab*) 25 mg PO Q6H PRN PRN Reason: ITCHING Sodium Chloride (Ns 0.9% 1000 Ml*) 1,000 mls @ 100 mls/hr IV PER RATE [facility] Last Admin: 12/20/16 18:30 Dose: 100 mls/hr Ceftriaxone Sodium 1,000 mg/ (Sodium Chloride) 50 mls @ 200 mls/hr IVPB Q24H [facility] Last Admin: 12/21/16 11:02 Dose: 200 mls/hr Insulin Human Lispro (Humalog*) 0 units SUBCUT AC [facility] PRN Reason: Protocol Last Admin: 12/22/16 07:52 Dose: Not Given Levalbuterol HCl (Xopenex Hfa Inhaler*) 2 puff INH Q6H PRN PRN Reason: SHORTNESS OF BREATH Levothyroxine Sodium (Synthroid Tab*) 50 mcg PO QAM@0600 [facility] Last Admin: 12/22/16 05:40 Dose: 50 mcg Morphine Sulfate (Morphine Inj (Syringe)*) 4 mg IV Q4H PRN PRN Reason: PAIN Last Admin: 12/22/16 07:55 Dose: 4 mg Morphine Sulfate (Morphine Oral.Soln 10 Mg*) 5 mg PO Q6H PRN PRN Reason: PAIN Last Admin: 12/20/16 17:17 Dose: 5 mg Morphine Sulfate (Ms Contin(*)) 30 mg PO Q12H [facility] Last Admin: 12/21/16 23:18 Dose: 30 mg Multi-Ingredient Ointment (Hydrocerin*) 1 applic TOPICAL TID [facility] Last Admin: 12/22/16 07:58 Dose: 1 applic Ondansetron HCl (Zofran Inj*) 4 mg IV Q6H PRN PRN Reason: NAUSEA Senna (Senokot Tab*) 2 tab PO BEDTIME PRN PRN Reason: CONSTIPATION Last Admin: 12/20/16 21:09 Dose: 2 tab Trazodone HCl (Desyrel Tab*) 50 mg PO BEDTIME [facility] Last Admin: 12/21/16 20:58 Dose: 50 mg Verapamil HCl (Calan Sr Tab*) 120 mg PO DAILY [facility] Last Admin: 12/22/16 07:57 Dose: 120 mg Vital Signs 12/21/16 12/21/16 12/21/16 10:23 11:01 11:33 Temperature 98.1 F Pulse Rate 74 Respiratory 20 18 16 Rate Blood Pressure 116/67 (mmHg) O2 Sat by Pulse 94 Oximetry 12/21/16 12/21/16 12/21/16 13:01 15:50 17:28 Temperature 98.0 F Pulse Rate 67 Respiratory 20 16 18 Rate Blood Pressure 108/61 (mmHg) O2 Sat by Pulse 97 Oximetry 12/21/16 12/21/16 12/21/16 18:28 19:28 19:57 Temperature Pulse Rate Respiratory 18 19 18 Rate Blood Pressure (mmHg) O2 Sat by Pulse Oximetry 12/21/16 12/21/16 12/21/16 19:59 20:58 20:59 Temperature 97.9 F Pulse Rate 76 Respiratory 20 18 18 Rate Blood Pressure 121/62 (mmHg) O2 Sat by Pulse 96 Oximetry 12/21/16 12/21/16 12/21/16 21:30 22:30 22:58 Temperature Pulse Rate Respiratory 18 16 16 Rate Blood Pressure (mmHg) O2 Sat by Pulse Oximetry 12/21/16 12/21/16 12/21/16 22:59 23:18 23:49 Temperature 97.0 F Pulse Rate 70 Respiratory 16 17 16 Rate Blood Pressure 127/67 (mmHg) O2 Sat by Pulse 97 Oximetry 12/22/16 12/22/16 12/22/16 01:18 03:38 04:06 Temperature 97.3 F Pulse Rate 69 66 Respiratory 16 20 16 Rate Blood Pressure 119/60 (mmHg) O2 Sat by Pulse 95 97 Oximetry 12/22/16 12/22/16 12/22/16 07:55 07:57 07:58 Temperature Pulse Rate Respiratory 18 18 18 Rate Blood Pressure (mmHg) O2 Sat by Pulse Oximetry 12/22/16 08:28 Temperature 97.9 F Pulse Rate 86 Respiratory 16 Rate Blood Pressure 131/68 (mmHg) O2 Sat by Pulse 99 Oximetry Oxygen Devices in Use Now: None Appearance: Middle aged female, OOB to chair, NAD Eyes: PERRLA Ears/Nose/Mouth/Throat: Mucous Membranes Moist Neck: NL Appearance and Movements; NL JVP Respiratory: Symmetrical Chest Expansion and Respiratory Effort, Clear to Auscultation Cardiovascular: RRR Abdominal: NL Sounds; No Tenderness; No Distention Extremities: No Edema Skin: - - papular rash to low back and buttocks with evidence of itching, lateral left thigh, bilateral shins/ankles Neurological: Alert and Oriented x 3 Lines/Tubes/Other Access: Clean, Dry and Intact Peripheral IV Nutrition: Taking PO's Result Diagrams: 12/21/16 06:51 12/21/16 06:51 Diagnostic Imaging: Lumbar spine MRI: 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 Assess/Plan/Problems-Billing Assessment: Ms. Gonzalez is a 66 yo female with a PMH of hypothyroidism, HTN, DM, asthma, and HLD who presented to the ED on 12/20/16 with concern for back pain and abnormal lumbar spine MRI which revealed a soft tissue mass. - Patient Problems (1) Spinal cord lesion Code(s): G95.9 - DISEASE OF SPINAL CORD, UNSPECIFIED Comment: Concern for neoplasm, appreciate oncology and radiation oncology consults. At this time, continue with pain management and medication titration. Will hold on steroid treatment, as this could adversely affect oncology workup. Plan for CT guided biopsy on Friday, potential RT if indicated. Increase gabapentin to 300 qAM and 600 qPM. Continue morphine SR. Continue IV morphine for breakthrough pain (adverse reaction to hydromorphone). Naproxen stopped in anticipation of biopsy tomorrow. (2) UTI (urinary tract infection) Comment: UA positive for nitrates and 3+ leukocyte esterase Awaiting urine cx. Continue ceftriaxone. (3) Rash Code(s): R21 - RASH AND OTHER NONSPECIFIC SKIN ERUPTION Comment: Possible atopic dermatitis Pruritic, papular rash to lower back, left buttock, and lateral left thigh, rash does cross midline of back. Also noted areas to ankles and shins. Continue prn hydroxyzine, hydrocortisone cream, Eucerin (4) Hypothyroidism Code(s): E03.9 - HYPOTHYROIDISM, UNSPECIFIED Comment: Continue levothyroxine. (5) HTN (hypertension) Code(s): I10 - ESSENTIAL (PRIMARY) HYPERTENSION Comment: Normotensive Continue verapamil. (6) Diabetes mellitus Code(s): E11.9 - TYPE 2 DIABETES MELLITUS WITHOUT COMPLICATIONS Comment: Controlled. Continue Lispro SSI. (7) HLD (hyperlipidemia) Code(s): E78.5 - HYPERLIPIDEMIA, UNSPECIFIED Comment: Diet controlled Continue heart healthy diet. (8) Asthma Code(s): J45.909 - UNSPECIFIED ASTHMA, UNCOMPLICATED Comment: Stable Continue prn Xopenex and albuterol (9) DVT prophylaxis Comment: MADHURI bill and SCDs Resume anticoagulation following biopsy. Status and Disposition: Inpatient admission. Plan for biopsy of mass on Friday.
[2016-12-22] MEDS: Morphine TAB Extended Release (*) 30 MG TAB.ER PO SCH ×2 (11:09→23:08)
[2016-12-22] MEDS: Hydrocortisone 1% CREAM* 30 GM TUBE TOPICAL SCH ×4 (11:09→20:28)
[2016-12-22] MEDS: cefTRIAXone VIAL(*) 1,000 MG in NS 0.9% 50 ML* 50 ML IVPB SCH (11:11)
[2016-12-22] MEDS: Cetirizine* 10 MG TAB PO SCH (20:26)
[2016-12-22] MEDS: traZODone TAB* 50 MG TAB PO SCH (20:26)
[2016-12-23] MEDS: Morphine INJ* 4 MG/ML 1 ML SYRINGE IV PRN ×5 (01:29→23:06)
[2016-12-23] MEDS: Levothyroxine TAB* 50 MCG TAB PO SCH (05:48)
[2016-12-23 07:23] LABS: BUN/Creatinine Ratio 27.2 (8-20); Calcium 9.9 mg/dL (8.6-10.3); EGFR African American 91.6 (>60); EGFR Non-African American 71.2 (>60)
[2016-12-23] MEDS: Insulin LISPRO* 1 UNITS UNIT SUBCUT SCH ×3 (08:10→17:18)
[2016-12-23] MEDS: Gabapentin CAP(*) 300 MG PO SCH ×2 (09:10→21:57)
[2016-12-23] MEDS: Verapamil SR TAB* 240 MG PO SCH (09:12)
[2016-12-23] MEDS: clonazePAM TAB(*) 0.5 MG PO SCH ×2 (09:12→22:00)
[2016-12-23] MEDS: Docusate CAP* 100 MG PO SCH ×2 (09:12→21:59)
[2016-12-23] MEDS: Morphine TAB Extended Release (*) 30 MG TAB.ER PO SCH ×2 (09:13→21:59)
[2016-12-23] MEDS: Moisturizing CREAM* 113 GM JAR TOPICAL SCH ×3 (09:13→22:01)
[2016-12-23] MEDS: Citalopram TAB* 40 MG PO SCH (09:13)
[2016-12-23] MEDS: Hydrocortisone 1% CREAM* 30 GM TUBE TOPICAL SCH ×4 (09:13→22:00)
[2016-12-23] MEDS ORDERED: LORazepam TAB(*) 1 MG PO ONE (09:18)
--- NOTE | 2016-12-23 09:55 | PN ---
Subjective Date of Service: 12/23/16 Interval History: Patient seen and examined at bedside. Continues to report radiating pain down the legs, as well as to low back. Feels as if rash is improving with topical treatment. Denies CP, SOB, n/v. In agreement with plan for CT guided biopsy today. Family History: Unchanged from Admission Social History: Unchanged from Admission Past Medical History: Unchanged from Admission Objective Active Medications: Acetaminophen (Tylenol Tab*) 650 mg PO Q4H PRN PRN Reason: FEVER/PAIN Albuterol (Ventolin 2.5 Mg/3 Ml Neb.Clotilde*) 2.5 mg INH Q2H PRN PRN Reason: SOB/WHEEZING Cetirizine HCl (Zyrtec*) 10 mg PO BEDTIME [facility] Last Admin: 12/22/16 20:26 Dose: 10 mg Citalopram Hydrobromide (Celexa Tab*) 40 mg PO DAILY [facility] Last Admin: 12/23/16 09:13 Dose: 40 mg Clonazepam (Klonopin Tab(*)) 0.5 mg PO BID [facility] Last Admin: 12/23/16 09:12 Dose: 0.5 mg Dextrose (D50w Syringe 50 Ml*) 12.5 gm IV PUSH .FOR FS < 60 - SS PRN PRN Reason: FS < 60 Docusate Sodium (Colace Cap*) 100 mg PO BID [facility] Last Admin: 12/23/16 09:12 Dose: 100 mg Gabapentin (Neurontin Cap(*)) 600 mg PO BEDTIME [facility] Last Admin: 12/22/16 20:25 Dose: 600 mg Gabapentin (Neurontin Cap(*)) 300 mg PO QAM [facility] Last Admin: 12/23/16 09:10 Dose: 300 mg Hydrocortisone (Hytone Cream 1%*) 1 applic TOPICAL QID [facility] Last Admin: 12/23/16 09:13 Dose: 1 applic Hydroxyzine HCl (Atarax Tab*) 25 mg PO Q6H PRN PRN Reason: ITCHING Sodium Chloride (Ns 0.9% 1000 Ml*) 1,000 mls @ 100 mls/hr IV PER RATE [facility] Last Admin: 12/20/16 18:30 Dose: 100 mls/hr Ceftriaxone Sodium 1,000 mg/ (Sodium Chloride) 50 mls @ 200 mls/hr IVPB Q24H [facility] Last Admin: 12/22/16 11:11 Dose: 200 mls/hr Insulin Human Lispro (Humalog*) 0 units SUBCUT AC [facility] PRN Reason: Protocol Last Admin: 12/23/16 08:10 Dose: Not Given Levalbuterol HCl (Xopenex Hfa Inhaler*) 2 puff INH Q6H PRN PRN Reason: SHORTNESS OF BREATH Levothyroxine Sodium (Synthroid Tab*) 50 mcg PO QAM@0600 [facility] Last Admin: 12/23/16 05:48 Dose: 50 mcg Morphine Sulfate (Morphine Inj (Syringe)*) 4 mg IV Q4H PRN PRN Reason: PAIN Last Admin: 12/23/16 05:57 Dose: 4 mg Morphine Sulfate (Morphine Oral.Soln 10 Mg*) 5 mg PO Q6H PRN PRN Reason: PAIN Last Admin: 12/20/16 17:17 Dose: 5 mg Morphine Sulfate (Ms Contin(*)) 30 mg PO Q12H [facility] Last Admin: 12/23/16 09:13 Dose: 30 mg Morphine Sulfate (Morphine Inj (Syringe)*) 5 mg IV ONCE ONE Stop: 12/23/16 12:01 Multi-Ingredient Ointment (Hydrocerin*) 1 applic TOPICAL TID [facility] Last Admin: 12/23/16 09:13 Dose: 1 applic Ondansetron HCl (Zofran Inj*) 4 mg IV Q6H PRN PRN Reason: NAUSEA Senna (Senokot Tab*) 2 tab PO BEDTIME PRN PRN Reason: CONSTIPATION Last Admin: 12/20/16 21:09 Dose: 2 tab Trazodone HCl (Desyrel Tab*) 50 mg PO BEDTIME [facility] Last Admin: 12/22/16 20:26 Dose: 50 mg Verapamil HCl (Calan Sr Tab*) 120 mg PO DAILY [facility] Last Admin: 12/23/16 09:12 Dose: 120 mg Vital Signs 12/22/16 12/22/16 12/22/16 11:09 12:05 13:09 Temperature Pulse Rate Respiratory 18 18 18 Rate Blood Pressure (mmHg) O2 Sat by Pulse Oximetry 12/22/16 12/22/16 12/22/16 15:09 15:48 19:39 Temperature 97.6 F Pulse Rate 76 Respiratory 20 20 18 Rate Blood Pressure 125/64 (mmHg) O2 Sat by Pulse 97 Oximetry 12/22/16 12/22/16 12/22/16 19:53 20:00 20:25 Temperature 97.5 F Pulse Rate 78 Respiratory 20 18 19 Rate Blood Pressure 118/51 (mmHg) O2 Sat by Pulse 93 Oximetry 12/22/16 12/22/16 12/22/16 20:26 20:39 22:25 Temperature Pulse Rate Respiratory 19 18 16 Rate Blood Pressure (mmHg) O2 Sat by Pulse Oximetry 12/22/16 12/22/16 12/22/16 22:26 23:08 23:17 Temperature 97.4 F Pulse Rate 70 Respiratory 16 17 16 Rate Blood Pressure 140/84 (mmHg) O2 Sat by Pulse 98 Oximetry 12/23/16 12/23/16 12/23/16 01:08 01:21 01:29 Temperature Pulse Rate 70 Respiratory 17 20 17 Rate Blood Pressure (mmHg) O2 Sat by Pulse 98 Oximetry 12/23/16 12/23/16 12/23/16 02:29 03:51 05:57 Temperature 97.8 F Pulse Rate 70 Respiratory 16 16 16 Rate Blood Pressure 117/65 (mmHg) O2 Sat by Pulse 97 Oximetry 12/23/16 12/23/16 12/23/16 09:10 09:12 09:13 Temperature Pulse Rate Respiratory 16 16 16 Rate Blood Pressure (mmHg) O2 Sat by Pulse Oximetry Oxygen Devices in Use Now: None Appearance: Female patient, OOB to chair, NAD Eyes: PERRLA Ears/Nose/Mouth/Throat: Mucous Membranes Moist Neck: NL Appearance and Movements; NL JVP Respiratory: Symmetrical Chest Expansion and Respiratory Effort, Clear to Auscultation Cardiovascular: NL Sounds; No Murmurs; No JVD, RRR Abdominal: NL Sounds; No Tenderness; No Distention Extremities: No Edema Skin: - - healing rash to low back/buttocks, left thigh, bilateral shins Neurological: Alert and Oriented x 3, NL Muscle Strength and Tone Lines/Tubes/Other Access: Clean, Dry and Intact Peripheral IV Result Diagrams: 12/21/16 06:51 12/23/16 06:25 Microbiology and Other Data: Microbiology 12/21/16 06:15 Urine Culture - Final Urine Escherichia Coli Diagnostic Imaging: Lumbar spine MRI: 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 Assess/Plan/Problems-Billing Assessment: Ms. Gonzalez is a 66 yo female with a PMH of hypothyroidism, HTN, DM, asthma, and HLD who presented to the ED on 12/20/16 with concern for back pain and abnormal lumbar spine MRI which revealed a soft tissue mass. - Patient Problems (1) Spinal cord lesion Code(s): G95.9 - DISEASE OF SPINAL CORD, UNSPECIFIED Comment: Concern for neoplasm, appreciate oncology and radiation oncology consults. At this time, continue with pain management and medication titration. CT guided biopsy today, oncology to review pathology slides in order to determine treatment plan. Continue morphine SR, gabapentin (increase to 600 BID tomorrow). Continue IV morphine for breakthrough pain (adverse reaction to hydromorphone). Naproxen stopped in anticipation of biopsy. (2) UTI (urinary tract infection) Comment: UA positive for nitrates and 3+ leukocyte esterase Urine cx shows growth of E.coli Continue ceftriaxone. (3) Rash Code(s): R21 - RASH AND OTHER NONSPECIFIC SKIN ERUPTION Comment: Possible atopic dermatitis Pruritic, papular rash to lower back, left buttock, and lateral left thigh, rash does cross midline of back. Also noted areas to ankles and shins. Continue prn hydroxyzine, hydrocortisone cream, Eucerin (4) Hypothyroidism Code(s): E03.9 - HYPOTHYROIDISM, UNSPECIFIED Comment: Continue levothyroxine. (5) HTN (hypertension) Code(s): I10 - ESSENTIAL (PRIMARY) HYPERTENSION Comment: Normotensive Continue verapamil. (6) Diabetes mellitus Code(s): E11.9 - TYPE 2 DIABETES MELLITUS WITHOUT COMPLICATIONS Comment: Well controlled. Continue Lispro SSI. (7) HLD (hyperlipidemia) Code(s): E78.5 - HYPERLIPIDEMIA, UNSPECIFIED Comment: Diet controlled Continue heart healthy diet. (8) Asthma Code(s): J45.909 - UNSPECIFIED ASTHMA, UNCOMPLICATED Comment: Stable Continue prn Xopenex and albuterol (9) DVT prophylaxis Comment: MADHURI bill and SCDs Resume anticoagulation following biopsy. Status and Disposition: Inpatient admission. Biopsy of spinal mass today.
--- NOTE | 2016-12-23 10:34 | PN ---
Progress Note - Progress Note SOAP: Subjective: []Not much changed. She did walk more with pain medication. Did sleep better in hospital. Eating fine. No fevers. Rash is getting better with steroid cream. Acetaminophen (Tylenol Tab*) 650 mg PO Q4H PRN PRN Reason: FEVER/PAIN Albuterol (Ventolin 2.5 Mg/3 Ml Neb.Clotilde*) 2.5 mg INH Q2H PRN PRN Reason: SOB/WHEEZING Cetirizine HCl (Zyrtec*) 10 mg PO BEDTIME [facility] Last Admin: 12/22/16 20:26 Dose: 10 mg Citalopram Hydrobromide (Celexa Tab*) 40 mg PO DAILY [facility] Last Admin: 12/23/16 09:13 Dose: 40 mg Clonazepam (Klonopin Tab(*)) 0.5 mg PO BID [facility] Last Admin: 12/23/16 09:12 Dose: 0.5 mg Dextrose (D50w Syringe 50 Ml*) 12.5 gm IV PUSH .FOR FS < 60 - SS PRN PRN Reason: FS < 60 Docusate Sodium (Colace Cap*) 100 mg PO BID [facility] Last Admin: 12/23/16 09:12 Dose: 100 mg Gabapentin (Neurontin Cap(*)) 600 mg PO BEDTIME [facility] Last Admin: 12/22/16 20:25 Dose: 600 mg Gabapentin (Neurontin Cap(*)) 300 mg PO QAM [facility] Last Admin: 12/23/16 09:10 Dose: 300 mg Hydrocortisone (Hytone Cream 1%*) 1 applic TOPICAL QID [facility] Last Admin: 12/23/16 09:13 Dose: 1 applic Hydroxyzine HCl (Atarax Tab*) 25 mg PO Q6H PRN PRN Reason: ITCHING Sodium Chloride (Ns 0.9% 1000 Ml*) 1,000 mls @ 100 mls/hr IV PER RATE [facility] Last Admin: 12/20/16 18:30 Dose: 100 mls/hr Ceftriaxone Sodium 1,000 mg/ (Sodium Chloride) 50 mls @ 200 mls/hr IVPB Q24H [facility] Last Admin: 12/22/16 11:11 Dose: 200 mls/hr Insulin Human Lispro (Humalog*) 0 units SUBCUT AC [facility] PRN Reason: Protocol Last Admin: 12/23/16 08:10 Dose: Not Given Levalbuterol HCl (Xopenex Hfa Inhaler*) 2 puff INH Q6H PRN PRN Reason: SHORTNESS OF BREATH Levothyroxine Sodium (Synthroid Tab*) 50 mcg PO QAM@0600 [facility] Last Admin: 12/23/16 05:48 Dose: 50 mcg Morphine Sulfate (Morphine Inj (Syringe)*) 4 mg IV Q4H PRN PRN Reason: PAIN Last Admin: 12/23/16 05:57 Dose: 4 mg Morphine Sulfate (Morphine Oral.Soln 10 Mg*) 5 mg PO Q6H PRN PRN Reason: PAIN Last Admin: 12/20/16 17:17 Dose: 5 mg Morphine Sulfate (Ms Contin(*)) 30 mg PO Q12H [facility] Last Admin: 12/23/16 09:13 Dose: 30 mg Morphine Sulfate (Morphine Inj (Syringe)*) 5 mg IV ONCE ONE Stop: 12/23/16 12:01 Multi-Ingredient Ointment (Hydrocerin*) 1 applic TOPICAL TID [facility] Last Admin: 12/23/16 09:13 Dose: 1 applic Ondansetron HCl (Zofran Inj*) 4 mg IV Q6H PRN PRN Reason: NAUSEA Senna (Senokot Tab*) 2 tab PO BEDTIME PRN PRN Reason: CONSTIPATION Last Admin: 12/20/16 21:09 Dose: 2 tab Trazodone HCl (Desyrel Tab*) 50 mg PO BEDTIME [facility] Last Admin: 12/22/16 20:26 Dose: 50 mg Verapamil HCl (Calan Sr Tab*) 120 mg PO DAILY [facility] Last Admin: 12/23/16 09:12 Dose: 120 mg Objective: [] Vital Signs Temp Pulse Resp BP Pulse Ox 97.8 F 70 16 117/65 97 12/23/16 03:51 12/23/16 03:51 12/23/16 09:13 12/23/16 03:51 12/23/16 03:51 HEENT - Mucosa moist, no LAD CTA RRR S1S2 +BS, NT ND, obese Ext no edema Neuro - strength remains 5/5 in LE rash not examined today Assessment: []66 year old wit lumbar spine mass, sever pain and some neuralgic compromise in cauda equina . Differential is broad and includes lymphoma as well as solid tumors, infection. Plan: []1. CT guided biopsy today. Discussed with Dr. Li and with Dr. Sosa and will need core biopsy and FNA. 2. Hold steroids until after biopsy and I will talk to pathology for first review. 3. Will plan treatment, XRT or chemotherapy based on results.
[2016-12-23] MEDS: cefTRIAXone VIAL(*) 1,000 MG in NS 0.9% 50 ML* 50 ML IVPB SCH (11:45)
[2016-12-23] MEDS ORDERED: Morphine INJ* 10 MG/ML 1 ML SYRINGE IV ONE (12:00)
[2016-12-23] MEDS ORDERED: fentaNYL* 50 MCG/ML 2 ML VIAL (100 MCG VIAL) ONE ×2 (13:25→14:26)
[2016-12-23 13:56] LABS: Carcinoembryonic Antigen 1.6 ng/mL (0.1-5.0)
--- NOTE | 2016-12-23 16:20 | RAD ---
Edited for charges. CPT II Codes: 6100F INDICATION: Intrathecal and paravertebral soft tissue mass at the L4/L5 level COMPARISON: CT abdomen pelvis and MRI of the lumbar spine dated December 20, 2016 The benefits and risks of the procedure explained to the patient. The patient consented to the exam. The patient was brought to the CT suite and positioned in the prone position. A time out was preformed with the technologist and nursing staff. The patient was prepped and draped in the usual sterile fashion. The patient was given intravenous intravenous fentanyl and local anesthesia with 1% lidocaine. Using CT guidance the mass in question was accessed with a 19-gauge Temno needle. With the 19-gauge needle serving as a "parent needle", fine-needle aspiration was acquired with a 21-gauge Chiba needle. The sample was provided to the attending cytopathologist and the attending pathologist indicated that the samples were adequate for diagnosis. According to the same technique a second fine-needle aspiration was acquired and provided to the attending cytopathologist. Next, utilizing the same outer needle advanced earlier, a total of three core biopsies were acquired with an 18-gauge Temno needle. The samples were placed in formalin and delivered to the histo pathology department. Postprocedural CT does not demonstrate any signs of immediate complication. The patient was transported to the holding area in stable condition prior to returning to her inpatient room. IMPRESSION: Uncomplicated CT guided FNA and core biopsy of left paravertebral L4/L5 soft tissue mass as described. MTDD
--- NOTE | 2016-12-23 16:59 | PN ---
Progress Note - Progress Note SOAP: ADDENDUM: Biopsy performed. Discussed with pathology and they are confident we have adequate tissue for diagnosis and all appropriate testing. At this time suspect hematologic malignancy. - Bone marrow biopsy in am - IV Dex 8 mg IV q 12
--- NOTE | 2016-12-23 18:38 | PN ---
Hospitalist Progress Note Approximately 30 minutes of face to face time spent with patient and family regarding today's biopsy and plan for bone marrow biopsy tomorrow. Patient very emotional regarding potential lymphoma diagnosis. Patient and spouse encouraged to gather questions and discuss further with oncology team tomorrow. Emotional support and education provided. Plan of care reviewed with patient and spouse - they are in agreement.
[2016-12-23] MEDS: Cetirizine* 10 MG TAB PO SCH (21:58)
[2016-12-23] MEDS: Dexamethasone TAB* 4 MG PO SCH (21:58)
[2016-12-23] MEDS: traZODone TAB* 50 MG TAB PO SCH (22:00)
[2016-12-24] MEDS: Levothyroxine TAB* 50 MCG TAB PO SCH (06:41)
[2016-12-24] MEDS: Morphine INJ* 4 MG/ML 1 ML SYRINGE IV PRN ×2 (06:41→21:43)
[2016-12-24] MEDS ORDERED: Lidocaine 2% PF * 5 ML VIAL INJ ONE (08:53)
[2016-12-24] MEDS: Insulin LISPRO* 1 UNITS UNIT SUBCUT SCH ×3 (09:11→17:50)
[2016-12-24] MEDS: Dexamethasone TAB* 4 MG PO SCH ×2 (09:12→20:41)
[2016-12-24] MEDS: Docusate CAP* 100 MG PO SCH ×2 (09:12→20:41)
[2016-12-24] MEDS: Gabapentin CAP(*) 300 MG PO SCH ×2 (09:12→20:40)
[2016-12-24] MEDS: Citalopram TAB* 40 MG PO SCH (09:13)
[2016-12-24] MEDS: clonazePAM TAB(*) 0.5 MG PO SCH ×2 (09:13→20:41)
[2016-12-24] MEDS: Verapamil SR TAB* 240 MG PO SCH (09:13)
[2016-12-24] MEDS: Hydrocortisone 1% CREAM* 30 GM TUBE TOPICAL SCH ×4 (09:14→20:42)
[2016-12-24] MEDS: Moisturizing CREAM* 113 GM JAR TOPICAL SCH ×3 (09:14→20:42)
[2016-12-24] MEDS: Morphine ORAL.SOLN 10 mg* 2 MG/ML UDC 5 ml PO PRN (09:34)
[2016-12-24 09:44] LABS: Erythrocyte Sed Rate 39 mm/Hr (0-30)
[2016-12-24] MEDS ORDERED: Morphine INJ* 4 MG/ML 1 ML SYRINGE ONE (09:50)
--- NOTE | 2016-12-24 09:58 | PN ---
Subjective Date of Service: 12/24/16 Interval History: Patient seen and examined at bedside. Reports pain has been better controlled but does worsen with movement and ambulation. Denies CP, SOB, fever/chills. Is still very anxious about potential lymphoma diagnosis but feels better this morning and "a little more at peace." is supportive. Family History: Unchanged from Admission Social History: Unchanged from Admission Past Medical History: Unchanged from Admission Objective Active Medications: Acetaminophen (Tylenol Tab*) 650 mg PO Q4H PRN PRN Reason: FEVER/PAIN Albuterol (Ventolin 2.5 Mg/3 Ml Neb.Clotilde*) 2.5 mg INH Q2H PRN PRN Reason: SOB/WHEEZING Cetirizine HCl (Zyrtec*) 10 mg PO BEDTIME [facility] Last Admin: 12/23/16 21:58 Dose: 10 mg Citalopram Hydrobromide (Celexa Tab*) 40 mg PO DAILY [facility] Last Admin: 12/24/16 09:13 Dose: 40 mg Clonazepam (Klonopin Tab(*)) 0.5 mg PO BID [facility] Last Admin: 12/24/16 09:13 Dose: 0.5 mg Dexamethasone (Decadron Tab*) 8 mg PO BID [facility] Last Admin: 12/24/16 09:12 Dose: 8 mg Dextrose (D50w Syringe 50 Ml*) 12.5 gm IV PUSH .FOR FS < 60 - SS PRN PRN Reason: FS < 60 Docusate Sodium (Colace Cap*) 100 mg PO BID [facility] Last Admin: 12/24/16 09:12 Dose: 100 mg Gabapentin (Neurontin Cap(*)) 600 mg PO BEDTIME [facility] Last Admin: 12/23/16 21:57 Dose: 600 mg Gabapentin (Neurontin Cap(*)) 300 mg PO QAM [facility] Last Admin: 12/24/16 09:12 Dose: 300 mg Hydrocortisone (Hytone Cream 1%*) 1 applic TOPICAL QID [facility] Last Admin: 12/24/16 09:14 Dose: 1 applic Hydroxyzine HCl (Atarax Tab*) 25 mg PO Q6H PRN PRN Reason: ITCHING Sodium Chloride (Ns 0.9% 1000 Ml*) 1,000 mls @ 100 mls/hr IV PER RATE [facility] Last Admin: 12/20/16 18:30 Dose: 100 mls/hr Ceftriaxone Sodium 1,000 mg/ (Sodium Chloride) 50 mls @ 200 mls/hr IVPB Q24H [facility] Last Admin: 12/23/16 11:45 Dose: 200 mls/hr Insulin Human Lispro (Humalog*) 0 units SUBCUT AC [facility] PRN Reason: Protocol Last Admin: 12/24/16 09:11 Dose: 3 units Levalbuterol HCl (Xopenex Hfa Inhaler*) 2 puff INH Q6H PRN PRN Reason: SHORTNESS OF BREATH Levothyroxine Sodium (Synthroid Tab*) 50 mcg PO QAM@0600 [facility] Last Admin: 12/24/16 06:41 Dose: 50 mcg Morphine Sulfate (Morphine Inj (Syringe)*) 4 mg IV Q4H PRN PRN Reason: PAIN Last Admin: 12/24/16 06:41 Dose: 4 mg Morphine Sulfate (Morphine Oral.Soln 10 Mg*) 5 mg PO Q6H PRN PRN Reason: PAIN Last Admin: 12/24/16 09:34 Dose: 5 mg Morphine Sulfate (Ms Contin(*)) 30 mg PO Q12H [facility] Last Admin: 12/23/16 21:59 Dose: 30 mg Multi-Ingredient Ointment (Hydrocerin*) 1 applic TOPICAL TID [facility] Last Admin: 12/24/16 09:14 Dose: 1 applic Ondansetron HCl (Zofran Inj*) 4 mg IV Q6H PRN PRN Reason: NAUSEA Senna (Senokot Tab*) 2 tab PO BEDTIME PRN PRN Reason: CONSTIPATION Last Admin: 12/20/16 21:09 Dose: 2 tab Trazodone HCl (Desyrel Tab*) 50 mg PO BEDTIME [facility] Last Admin: 12/23/16 22:00 Dose: 50 mg Verapamil HCl (Calan Sr Tab*) 120 mg PO DAILY [facility] Last Admin: 12/24/16 09:13 Dose: 120 mg Vital Signs 12/23/16 12/23/16 12/23/16 10:17 10:34 15:35 Temperature 97.9 F Pulse Rate 73 Respiratory 16 18 20 Rate Blood Pressure 124/62 (mmHg) O2 Sat by Pulse 96 Oximetry 12/23/16 12/23/16 12/23/16 16:03 18:41 20:28 Temperature 97.7 F 98.1 F Pulse Rate 77 82 Respiratory 20 20 15 Rate Blood Pressure 118/60 126/68 (mmHg) O2 Sat by Pulse 92 96 Oximetry 12/23/16 12/23/16 12/23/16 20:34 21:57 21:59 Temperature Pulse Rate 75 Respiratory 16 18 18 Rate Blood Pressure (mmHg) O2 Sat by Pulse 95 Oximetry 12/23/16 12/23/16 12/24/16 22:00 23:06 00:08 Temperature 98.3 F Pulse Rate 74 Respiratory 18 18 17 Rate Blood Pressure 128/61 (mmHg) O2 Sat by Pulse 96 Oximetry 12/24/16 12/24/16 12/24/16 03:24 06:30 06:41 Temperature 97.5 F Pulse Rate 75 Respiratory 15 16 18 Rate Blood Pressure 121/60 (mmHg) O2 Sat by Pulse 96 Oximetry 12/24/16 12/24/16 12/24/16 07:27 07:41 09:12 Temperature 98.3 F Pulse Rate 87 Respiratory 16 16 17 Rate Blood Pressure 133/67 (mmHg) O2 Sat by Pulse 98 Oximetry 12/24/16 12/24/16 12/24/16 09:13 09:34 09:57 Temperature Pulse Rate Respiratory 17 16 18 Rate Blood Pressure (mmHg) O2 Sat by Pulse Oximetry Oxygen Devices in Use Now: None Appearance: Female patient, OOB to chair, occasionally tearful secondary to anxiety but NAD Eyes: PERRLA Ears/Nose/Mouth/Throat: Mucous Membranes Moist Neck: NL Appearance and Movements; NL JVP Respiratory: Symmetrical Chest Expansion and Respiratory Effort, Clear to Auscultation Cardiovascular: RRR Abdominal: NL Sounds; No Tenderness; No Distention Extremities: No Edema Neurological: Alert and Oriented x 3 Lines/Tubes/Other Access: Clean, Dry and Intact Peripheral IV Result Diagrams: 12/24/16 05:48 12/23/16 06:25 Microbiology and Other Data: Microbiology 12/21/16 06:15 Urine Culture - Final Urine Escherichia Coli Diagnostic Imaging: Lumbar spine MRI: 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 Assess/Plan/Problems-Billing Assessment: Ms. Gonzalez is a 66 yo female with a PMH of hypothyroidism, HTN, DM, asthma, and HLD who presented to the ED on 12/20/16 with concern for back pain and abnormal lumbar spine MRI which revealed a soft tissue mass. - Patient Problems (1) Spinal cord lesion Code(s): G95.9 - DISEASE OF SPINAL CORD, UNSPECIFIED Comment: Concern for neoplasm, appreciate oncology and radiation oncology consults. At this time, continue with pain management and medication titration. Pathology pending from yesterday's biopsy, plan for bone marrow biopsy today PT eval Continue morphine SR, gabapentin Continue IV morphine for breakthrough pain (adverse reaction to hydromorphone). Naproxen stopped in anticipation of biopsy. (2) UTI (urinary tract infection) Comment: UA positive for nitrates and 3+ leukocyte esterase Urine cx shows growth of E.coli Continue ceftriaxone. (3) Rash Code(s): R21 - RASH AND OTHER NONSPECIFIC SKIN ERUPTION Comment: Possible atopic dermatitis, improved Pruritic, papular rash to lower back, left buttock, and lateral left thigh, rash does cross midline of back. Also noted areas to ankles and shins. Continue prn hydroxyzine, hydrocortisone cream, Eucerin (4) Hypothyroidism Code(s): E03.9 - HYPOTHYROIDISM, UNSPECIFIED Comment: Continue levothyroxine. (5) HTN (hypertension) Code(s): I10 - ESSENTIAL (PRIMARY) HYPERTENSION Comment: Normotensive Continue verapamil. (6) Diabetes mellitus Code(s): E11.9 - TYPE 2 DIABETES MELLITUS WITHOUT COMPLICATIONS Comment: Controlled, trending up with initiation of dexamethasone Continue Lispro SSI. (7) HLD (hyperlipidemia) Code(s): E78.5 - HYPERLIPIDEMIA, UNSPECIFIED Comment: Diet controlled Continue heart healthy diet. (8) Asthma Code(s): J45.909 - UNSPECIFIED ASTHMA, UNCOMPLICATED Comment: Stable Continue prn Xopenex and albuterol (9) DVT prophylaxis Comment: MADHURI bill and SCDs Resume anticoagulation following biopsy. Status and Disposition: Inpatient admission. Plan for bone marrow biopsy today.
[2016-12-24] MEDS ORDERED: Morphine INJ* 4 MG/ML 1 ML SYRINGE IV ONE (10:00)
--- NOTE | 2016-12-24 10:25 | PROCNOTE ---
Hematology/Oncology Procedure Hematology/Oncology Procedure Note: Bone Marrow Biopsy and Aspirate Procedure: Informed consent obtained. Time out performed per protocol. Anesthesia 2% lidocaine, approx. 7 mLs administered with good effect. Bone marrow biopsy and aspirate performed on Right Posterior Superior Iliac Crest without obvious complications. Pt. tolerated well. Minimal Blood loss.
--- NOTE | 2016-12-24 10:37 | PN ---
Progress Note - Progress Note SOAP: Subjective: []Feeling OK overall. Most comfortable sitting upright or laying on side. Pain has been reasonably controlled with meds, though increased at any point of movement. Aware of biopsy that was concerning for lymphoma and plan for further work-up with bone marrow biopsy today. , Melvin, at bedside very supportive. Medications: Acetaminophen (Tylenol Tab*) 650 mg PO Q4H PRN PRN Reason: FEVER/PAIN Albuterol (Ventolin 2.5 Mg/3 Ml Neb.Clotilde*) 2.5 mg INH Q2H PRN PRN Reason: SOB/WHEEZING Cetirizine HCl (Zyrtec*) 10 mg PO BEDTIME [facility] Last Admin: 12/23/16 21:58 Dose: 10 mg Citalopram Hydrobromide (Celexa Tab*) 40 mg PO DAILY [facility] Last Admin: 12/24/16 09:13 Dose: 40 mg Clonazepam (Klonopin Tab(*)) 0.5 mg PO BID [facility] Last Admin: 12/24/16 09:13 Dose: 0.5 mg Dexamethasone (Decadron Tab*) 8 mg PO BID [facility] Last Admin: 12/24/16 09:12 Dose: 8 mg Dextrose (D50w Syringe 50 Ml*) 12.5 gm IV PUSH .FOR FS < 60 - SS PRN PRN Reason: FS < 60 Docusate Sodium (Colace Cap*) 100 mg PO BID [facility] Last Admin: 12/24/16 09:12 Dose: 100 mg Gabapentin (Neurontin Cap(*)) 600 mg PO BEDTIME [facility] Last Admin: 12/23/16 21:57 Dose: 600 mg Gabapentin (Neurontin Cap(*)) 300 mg PO QAM [facility] Last Admin: 12/24/16 09:12 Dose: 300 mg Hydrocortisone (Hytone Cream 1%*) 1 applic TOPICAL QID [facility] Last Admin: 12/24/16 09:14 Dose: 1 applic Hydroxyzine HCl (Atarax Tab*) 25 mg PO Q6H PRN PRN Reason: ITCHING Sodium Chloride (Ns 0.9% 1000 Ml*) 1,000 mls @ 100 mls/hr IV PER RATE [facility] Last Admin: 12/20/16 18:30 Dose: 100 mls/hr Ceftriaxone Sodium 1,000 mg/ (Sodium Chloride) 50 mls @ 200 mls/hr IVPB Q24H [facility] Last Admin: 12/23/16 11:45 Dose: 200 mls/hr Insulin Human Lispro (Humalog*) 0 units SUBCUT AC [facility] PRN Reason: Protocol Last Admin: 12/24/16 09:11 Dose: 3 units Levalbuterol HCl (Xopenex Hfa Inhaler*) 2 puff INH Q6H PRN PRN Reason: SHORTNESS OF BREATH Levothyroxine Sodium (Synthroid Tab*) 50 mcg PO QAM@0600 [facility] Last Admin: 12/24/16 06:41 Dose: 50 mcg Morphine Sulfate (Morphine Inj (Syringe)*) 4 mg IV Q4H PRN PRN Reason: PAIN Last Admin: 12/24/16 06:41 Dose: 4 mg Morphine Sulfate (Morphine Oral.Soln 10 Mg*) 5 mg PO Q6H PRN PRN Reason: PAIN Last Admin: 12/24/16 09:34 Dose: 5 mg Morphine Sulfate (Ms Contin(*)) 30 mg PO Q12H [facility] Last Admin: 12/23/16 21:59 Dose: 30 mg Multi-Ingredient Ointment (Hydrocerin*) 1 applic TOPICAL TID [facility] Last Admin: 12/24/16 09:14 Dose: 1 applic Ondansetron HCl (Zofran Inj*) 4 mg IV Q6H PRN PRN Reason: NAUSEA Senna (Senokot Tab*) 2 tab PO BEDTIME PRN PRN Reason: CONSTIPATION Last Admin: 12/20/16 21:09 Dose: 2 tab Trazodone HCl (Desyrel Tab*) 50 mg PO BEDTIME [facility] Last Admin: 12/23/16 22:00 Dose: 50 mg Verapamil HCl (Calan Sr Tab*) 120 mg PO DAILY [facility] Last Admin: 12/24/16 09:13 Dose: 120 mg Objective: [] Vital Signs Temp Pulse Resp BP Pulse Ox 98.3 F 87 18 133/67 98 12/24/16 07:27 12/24/16 07:27 12/24/16 09:57 12/24/16 07:27 12/24/16 07:27 A&Ox3, EOMI, communicating clearly, neuro grossly non-focal HOUSE, ambulates with slow gait Resp. even and non-labored without audible wheeze Laboratory Results - last 24 hr 12/23/16 12/23/16 12/23/16 06:25 06:25 11:45 ESR Sodium 138 Potassium 4.0 Chloride 102 Carbon Dioxide 31 Anion Gap 5 BUN 22 Creatinine 0.81 Est GFR ( Amer) 91.6 Est GFR (Non-Af Amer) 71.2 BUN/Creatinine Ratio 27.2 H Glucose 85 POC Glucose (mg/dL) 101 Calcium 9.9 Lactate Dehydrogenase 196 Carcinoembryonic Ag 1.6 CA 125 Antigen 7.8 Flow Intrp 2-8 Markers Flow Intrp 16+ Markers 12/23/16 12/23/16 12/24/16 14:45 17:16 05:48 ESR 39 H Sodium Potassium Chloride Carbon Dioxide Anion Gap BUN Creatinine Est GFR ( Amer) Est GFR (Non-Af Amer) BUN/Creatinine Ratio Glucose POC Glucose (mg/dL) 125 H Calcium Lactate Dehydrogenase Carcinoembryonic Ag CA 125 Antigen Flow Intrp 2-8 Markers TNP Flow Intrp 16+ Markers TNP Assessment: []66 yo f currently in process of lymphoma work-up, discussed process and plan moving forward. All questions answered. Plan: []1. Steroids started yesterday, will add in Famotidine daily 2. Bone marrow biopsy today, extra dose IV morphine administered as well 3. No RT planned at this time, suggest PT eval. 4. Pain appears reasonably controlled however will need to transition off IV meds, suggest considering increasing long acting in next day or so
[2016-12-24 11:19] LABS: Hematocrit 39 % (35-47); Hemoglobin 12.5 g/dl (12.0-16.0); Mean Corpuscular HGB Conc 32 g/dl (31-36); Mean Corpuscular Hemoglobin 28 pg (27-31); Mean Corpuscular Volume 86 fL (80-97); Mean Platelet Volume 9 um3 (7.4-10.4); Red Blood Count 4.51 10^6/ul (4.0-5.4); Red Cell Distribution Width 15 % (10.5-15); White Blood Count 9.9 10^3/ul (3.5-10.8)
[2016-12-24] MEDS: cefTRIAXone VIAL(*) 1,000 MG in NS 0.9% 50 ML* 50 ML IVPB SCH (11:37)
[2016-12-24] MEDS: Morphine TAB Extended Release (*) 30 MG TAB.ER PO SCH ×2 (11:38→22:48)
[2016-12-24] MEDS ORDERED: Gabapentin CAP(*) 300 MG PO ONE (12:37)
[2016-12-24] MEDS: Cetirizine* 10 MG TAB PO SCH (20:41)
[2016-12-24] MEDS: traZODone TAB* 50 MG TAB PO SCH (20:41)
[2016-12-25] MEDS: Levothyroxine TAB* 50 MCG TAB PO SCH (06:14)
[2016-12-25] MEDS ORDERED: oxyCODONE TAB* 5 MG TAB PO PRN ×2 (07:11)
[2016-12-25] MEDS ORDERED: traMADol TAB* 50 MG PO PRN ×2 (07:11)
[2016-12-25] MEDS ORDERED: Morphine TAB Extended Release (*) 30 MG TAB.ER PO SCH ×2 (08:00→21:00)
[2016-12-25] MEDS: Insulin LISPRO* 1 UNITS UNIT SUBCUT SCH ×3 (08:34→17:06)
[2016-12-25] MEDS: Docusate CAP* 100 MG PO SCH ×2 (08:34→20:03)
[2016-12-25] MEDS: Gabapentin CAP(*) 300 MG PO SCH ×2 (08:36→20:53)
[2016-12-25] MEDS: Famotidine TAB* 20 MG PO SCH (08:37)
[2016-12-25] MEDS: Dexamethasone TAB* 4 MG PO SCH ×2 (08:37→20:02)
[2016-12-25] MEDS: Verapamil SR TAB* 240 MG PO SCH (08:37)
[2016-12-25] MEDS: clonazePAM TAB(*) 0.5 MG PO SCH ×2 (08:37→20:53)
[2016-12-25] MEDS: Citalopram TAB* 40 MG PO SCH (08:37)
[2016-12-25] MEDS: Hydrocortisone 1% CREAM* 30 GM TUBE TOPICAL SCH ×4 (08:38→20:04)
[2016-12-25] MEDS: Moisturizing CREAM* 113 GM JAR TOPICAL SCH ×3 (08:38→20:04)
[2016-12-25] MEDS: cefTRIAXone VIAL(*) 1,000 MG in NS 0.9% 50 ML* 50 ML IVPB SCH (11:52)
--- NOTE | 2016-12-25 12:42 | PN ---
Progress Note - Progress Note SOAP: Subjective: []Overall doing well. Trying to stay positive. Hip feels bruised post bone marrow, but not severe. Started PT and feels this is very good. "I should maybe do this at home too, even just to get me out and moving." Pain better controlled at this point and very agreeable with plan to pursue oral coverage. Medications: Acetaminophen (Tylenol Tab*) 650 mg PO Q4H PRN PRN Reason: FEVER/PAIN Albuterol (Ventolin 2.5 Mg/3 Ml Neb.Clotilde*) 2.5 mg INH Q2H PRN PRN Reason: SOB/WHEEZING Cetirizine HCl (Zyrtec*) 10 mg PO BEDTIME [facility] Last Admin: 12/24/16 20:41 Dose: 10 mg Citalopram Hydrobromide (Celexa Tab*) 40 mg PO DAILY [facility] Last Admin: 12/25/16 08:37 Dose: 40 mg Clonazepam (Klonopin Tab(*)) 0.5 mg PO BID [facility] Last Admin: 12/25/16 08:37 Dose: 0.5 mg Dexamethasone (Decadron Tab*) 8 mg PO BID [facility] Last Admin: 12/25/16 08:37 Dose: 8 mg Dextrose (D50w Syringe 50 Ml*) 12.5 gm IV PUSH .FOR FS < 60 - SS PRN PRN Reason: FS < 60 Docusate Sodium (Colace Cap*) 100 mg PO BID [facility] Last Admin: 12/25/16 08:34 Dose: 100 mg Famotidine (Pepcid Tab*) 20 mg PO DAILY [facility] Last Admin: 12/25/16 08:37 Dose: 20 mg Gabapentin (Neurontin Cap(*)) 600 mg PO BID [facility] Last Admin: 12/25/16 08:36 Dose: 600 mg Hydrocortisone (Hytone Cream 1%*) 1 applic TOPICAL QID [facility] Last Admin: 12/25/16 11:55 Dose: 1 applic Hydroxyzine HCl (Atarax Tab*) 25 mg PO Q6H PRN PRN Reason: ITCHING Sodium Chloride (Ns 0.9% 1000 Ml*) 1,000 mls @ 100 mls/hr IV PER RATE [facility] Last Admin: 12/20/16 18:30 Dose: 100 mls/hr Ceftriaxone Sodium 1,000 mg/ (Sodium Chloride) 50 mls @ 200 mls/hr IVPB Q24H [facility] Last Admin: 12/25/16 11:52 Dose: 200 mls/hr Insulin Human Lispro (Humalog*) 0 units SUBCUT AC [facility] PRN Reason: Protocol Last Admin: 12/25/16 08:34 Dose: 3 units Levalbuterol HCl (Xopenex Hfa Inhaler*) 2 puff INH Q6H PRN PRN Reason: SHORTNESS OF BREATH Levothyroxine Sodium (Synthroid Tab*) 50 mcg PO QAM@0600 [facility] Last Admin: 12/25/16 06:14 Dose: 50 mcg Morphine Sulfate (Morphine Inj (Syringe)*) 4 mg IV Q4H PRN PRN Reason: PAIN Last Admin: 12/24/16 21:43 Dose: 4 mg Morphine Sulfate (Morphine Oral.Soln 10 Mg*) 5 mg PO Q6H PRN PRN Reason: PAIN Last Admin: 12/24/16 09:34 Dose: 5 mg Morphine Sulfate (Ms Contin(*)) 30 mg PO BID [facility] Multi-Ingredient Ointment (Hydrocerin*) 1 applic TOPICAL TID [facility] Last Admin: 12/25/16 08:38 Dose: 1 applic Ondansetron HCl (Zofran Inj*) 4 mg IV Q6H PRN PRN Reason: NAUSEA Oxycodone HCl (Roxycodone Tab*) 5 mg PO Q4H PRN PRN Reason: PAIN - MILD TO MODERATE Oxycodone HCl (Roxycodone Tab*) 10 mg PO Q4H PRN PRN Reason: PAIN - MODERATE TO SEVERE Senna (Senokot Tab*) 2 tab PO BEDTIME PRN PRN Reason: CONSTIPATION Last Admin: 12/20/16 21:09 Dose: 2 tab Tramadol HCl (Ultram*) 50 mg PO Q6H PRN PRN Reason: PAIN - MILD TO MODERATE Tramadol HCl (Ultram*) 100 mg PO Q6H PRN PRN Reason: PAIN - MODERATE TO SEVERE Trazodone HCl (Desyrel Tab*) 50 mg PO BEDTIME [facility] Last Admin: 12/24/16 20:41 Dose: 50 mg Verapamil HCl (Calan Sr Tab*) 120 mg PO DAILY [facility] Last Admin: 12/25/16 08:37 Dose: 120 mg Objective: [] Vital Signs Temp Pulse Resp BP Pulse Ox 98.0 F 77 16 138/71 94 12/25/16 07:36 12/25/16 07:36 12/25/16 08:37 12/25/16 07:36 12/25/16 07:36 A&Ox3, EOMI, HOUSE, neuro grossly non-focal HRR, no murmur noted LS clear bilat. +BS, abd. soft and non-tender, no spleen felt +PP, no edema noted Bone marrow biopsy site with dressing intact, benign Assessment: []66 yo f currently being worked up for lymphoma (based on preliminary review of lumbar biopsy and flow). Pain markedly improved and reasonable to d/c tomorrow on PO meds. Plan: []1. Pain: agree with MS contin TID, as she does not like oxycodone reasonable to try Tramadol 2. Decrease ambulation: cont. PT as outpatient FU Dr. Rivas Friday @ [id number] for review of path and further plan of care
[2016-12-25 12:59] LABS: CA 19-9 32 U/mL (<55)
[2016-12-25] MEDS ORDERED: Morphine TAB Extended Release (*) 30 MG TAB.ER PO ONE (14:55)
--- NOTE | 2016-12-25 15:01 | PN ---
Subjective Date of Service: 12/25/16 Interval History: Patient seen and examined at bedside. Reports feeling in better spirits and feels well supported. Denies CP, SOB, fever/chills. Thinks back pain is getting better and feels some of her pain is from immobility and sitting in chair too much. Would like to pursue outpatient PT. Pain management is better, does not like oxycodone but thinks tramadol has worked in the past. Family History: Unchanged from Admission Social History: Unchanged from Admission Past Medical History: Unchanged from Admission Objective Active Medications: Acetaminophen (Tylenol Tab*) 650 mg PO Q4H PRN PRN Reason: FEVER/PAIN Albuterol (Ventolin 2.5 Mg/3 Ml Neb.Clotilde*) 2.5 mg INH Q2H PRN PRN Reason: SOB/WHEEZING Cetirizine HCl (Zyrtec*) 10 mg PO BEDTIME [facility] Last Admin: 12/24/16 20:41 Dose: 10 mg Citalopram Hydrobromide (Celexa Tab*) 40 mg PO DAILY [facility] Last Admin: 12/25/16 08:37 Dose: 40 mg Clonazepam (Klonopin Tab(*)) 0.5 mg PO BID [facility] Last Admin: 12/25/16 08:37 Dose: 0.5 mg Dexamethasone (Decadron Tab*) 8 mg PO BID [facility] Last Admin: 12/25/16 08:37 Dose: 8 mg Dextrose (D50w Syringe 50 Ml*) 12.5 gm IV PUSH .FOR FS < 60 - SS PRN PRN Reason: FS < 60 Docusate Sodium (Colace Cap*) 100 mg PO BID [facility] Last Admin: 12/25/16 08:34 Dose: 100 mg Famotidine (Pepcid Tab*) 20 mg PO DAILY [facility] Last Admin: 12/25/16 08:37 Dose: 20 mg Gabapentin (Neurontin Cap(*)) 600 mg PO BID [facility] Last Admin: 12/25/16 08:36 Dose: 600 mg Hydrocortisone (Hytone Cream 1%*) 1 applic TOPICAL QID [facility] Last Admin: 12/25/16 11:55 Dose: 1 applic Hydroxyzine HCl (Atarax Tab*) 25 mg PO Q6H PRN PRN Reason: ITCHING Sodium Chloride (Ns 0.9% 1000 Ml*) 1,000 mls @ 100 mls/hr IV PER RATE [facility] Last Admin: 12/20/16 18:30 Dose: 100 mls/hr Ceftriaxone Sodium 1,000 mg/ (Sodium Chloride) 50 mls @ 200 mls/hr IVPB Q24H [facility] Last Admin: 12/25/16 11:52 Dose: 200 mls/hr Insulin Human Lispro (Humalog*) 0 units SUBCUT AC [facility] PRN Reason: Protocol Last Admin: 12/25/16 12:48 Dose: 3 units Levalbuterol HCl (Xopenex Hfa Inhaler*) 2 puff INH Q6H PRN PRN Reason: SHORTNESS OF BREATH Levothyroxine Sodium (Synthroid Tab*) 50 mcg PO QAM@0600 [facility] Last Admin: 12/25/16 06:14 Dose: 50 mcg Morphine Sulfate (Morphine Inj (Syringe)*) 4 mg IV Q4H PRN PRN Reason: PAIN Last Admin: 12/24/16 21:43 Dose: 4 mg Morphine Sulfate (Morphine Oral.Soln 10 Mg*) 5 mg PO Q6H PRN PRN Reason: PAIN Last Admin: 12/24/16 09:34 Dose: 5 mg Morphine Sulfate (Ms Contin(*)) 30 mg PO ONCE ONE Stop: 12/25/16 14:56 Morphine Sulfate (Ms Contin(*)) 30 mg PO TID [facility] Multi-Ingredient Ointment (Hydrocerin*) 1 applic TOPICAL TID [facility] Last Admin: 12/25/16 12:48 Dose: 1 applic Ondansetron HCl (Zofran Inj*) 4 mg IV Q6H PRN PRN Reason: NAUSEA Oxycodone HCl (Roxycodone Tab*) 5 mg PO Q4H PRN PRN Reason: PAIN - MILD TO MODERATE Oxycodone HCl (Roxycodone Tab*) 10 mg PO Q4H PRN PRN Reason: PAIN - MODERATE TO SEVERE Senna (Senokot Tab*) 2 tab PO BEDTIME PRN PRN Reason: CONSTIPATION Last Admin: 12/20/16 21:09 Dose: 2 tab Tramadol HCl (Ultram*) 50 mg PO Q6H PRN PRN Reason: PAIN - MILD TO MODERATE Tramadol HCl (Ultram*) 100 mg PO Q6H PRN PRN Reason: PAIN - MODERATE TO SEVERE Trazodone HCl (Desyrel Tab*) 50 mg PO BEDTIME [facility] Last Admin: 12/24/16 20:41 Dose: 50 mg Verapamil HCl (Calan Sr Tab*) 120 mg PO DAILY [facility] Last Admin: 12/25/16 08:37 Dose: 120 mg Vital Signs 12/24/16 12/24/16 12/24/16 16:23 18:46 20:00 Temperature Pulse Rate 84 Respiratory 16 16 17 Rate Blood Pressure 140/64 (mmHg) O2 Sat by Pulse 94 Oximetry 12/24/16 12/24/16 12/24/16 20:40 20:41 21:43 Temperature Pulse Rate Respiratory 17 17 16 Rate Blood Pressure (mmHg) O2 Sat by Pulse Oximetry 12/24/16 12/24/16 12/24/16 22:40 22:41 22:43 Temperature Pulse Rate Respiratory 18 18 18 Rate Blood Pressure (mmHg) O2 Sat by Pulse Oximetry 12/24/16 12/24/16 12/25/16 22:48 23:46 00:48 Temperature 97.8 F Pulse Rate 74 Respiratory 18 17 15 Rate Blood Pressure 129/70 (mmHg) O2 Sat by Pulse 96 Oximetry 12/25/16 12/25/16 12/25/16 03:35 07:36 08:35 Temperature 98.2 F 98.0 F Pulse Rate 73 77 Respiratory 17 16 16 Rate Blood Pressure 128/69 138/71 (mmHg) O2 Sat by Pulse 94 94 Oximetry 12/25/16 12/25/16 12/25/16 08:36 08:37 10:35 Temperature Pulse Rate Respiratory 16 16 18 Rate Blood Pressure (mmHg) O2 Sat by Pulse Oximetry 12/25/16 10:36 Temperature Pulse Rate Respiratory 17 Rate Blood Pressure (mmHg) O2 Sat by Pulse Oximetry Oxygen Devices in Use Now: None Appearance: Female patient, OOB to chair, NAD Eyes: PERRLA Ears/Nose/Mouth/Throat: Mucous Membranes Moist Neck: NL Appearance and Movements; NL JVP Respiratory: Symmetrical Chest Expansion and Respiratory Effort, Clear to Auscultation Cardiovascular: NL Sounds; No Murmurs; No JVD, RRR Abdominal: NL Sounds; No Tenderness; No Distention Extremities: No Edema, - - distally nvi Neurological: Alert and Oriented x 3, - - HOUSE Lines/Tubes/Other Access: Clean, Dry and Intact Peripheral IV Nutrition: Taking PO's Result Diagrams: 12/24/16 05:48 12/23/16 06:25 Microbiology and Other Data: Microbiology 12/21/16 06:15 Urine Culture - Final Urine Escherichia Coli Diagnostic Imaging: Lumbar spine MRI: 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 Assess/Plan/Problems-Billing Assessment: Ms. Gonzalez is a 66 yo female with a PMH of hypothyroidism, HTN, DM, asthma, and HLD who presented to the ED on 12/20/16 with concern for back pain and abnormal lumbar spine MRI which revealed a soft tissue mass. - Patient Problems (1) Spinal cord lesion Code(s): G95.9 - DISEASE OF SPINAL CORD, UNSPECIFIED Comment: Concern for tumor vs lymphoma, pathology pending Outpatient follow-up with [facility] next week Appreciate oncology and radiation oncology consults. At this time, continue with pain management and medication titration. Continue morphine SR (increase to TID), gabapentin Will trial prn oxycodone and tramadol for breakthrough pain to see which med pt can use at home Continue PT (2) UTI (urinary tract infection) Comment: UA positive for nitrates and 3+ leukocyte esterase Urine cx shows growth of E.coli Continue ceftriaxone, can dc at discharge (3) Rash Code(s): R21 - RASH AND OTHER NONSPECIFIC SKIN ERUPTION Comment: Possible atopic dermatitis, improved Pruritic, papular rash to lower back, left buttock, and lateral left thigh, rash does cross midline of back. Also noted areas to ankles and shins. Continue prn hydroxyzine, hydrocortisone cream, Eucerin (4) Hypothyroidism Code(s): E03.9 - HYPOTHYROIDISM, UNSPECIFIED Comment: Continue levothyroxine. (5) HTN (hypertension) Code(s): I10 - ESSENTIAL (PRIMARY) HYPERTENSION Comment: Normotensive Continue verapamil. (6) Diabetes mellitus Code(s): E11.9 - TYPE 2 DIABETES MELLITUS WITHOUT COMPLICATIONS Comment: Controlled, trending up with initiation of dexamethasone Continue Lispro SSI. 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 (8) Asthma Code(s): J45.909 - UNSPECIFIED ASTHMA, UNCOMPLICATED Comment: Stable Continue prn Xopenex and albuterol (9) DVT prophylaxis Comment: MADHURI bill and SCDs SQ Lovenox Status and Disposition: Inpatient admission. Anticipate dc to home tomorrow.
[2016-12-25 16:52] LABS: Albumin 3.3 g/dL (3.4-4.7); Gamma Globulin 0.8 g/dL (0.6-1.6); Total Protein(PEP) 6.7 g/dL (6.3 - 7.9)
[2016-12-25 17:41] LABS: Beta 2 Microglobulin 1.86 mcg/mL
[2016-12-25 18:31] LABS: Kappa Free Light Chain 1.37 mg/dL; Kappa/Lambda Free Light Chain 1.52
[2016-12-25] MEDS: Enoxaparin(*) 40 MG/0.4 ML SYR SUBCUT SCH (19:29)
[2016-12-25] MEDS: Cetirizine* 10 MG TAB PO SCH (20:03)
[2016-12-25] MEDS: Morphine TAB Extended Release (*) 30 MG TAB.ER PO SCH (20:53)
[2016-12-25] MEDS: traZODone TAB* 50 MG TAB PO SCH (20:54)
[2016-12-26] MEDS: Levothyroxine TAB* 50 MCG TAB PO SCH (05:41)
[2016-12-26] MEDS: Verapamil SR TAB* 240 MG PO SCH (09:21)
[2016-12-26] MEDS: Dexamethasone TAB* 4 MG PO SCH ×2 (09:21→20:04)
[2016-12-26] MEDS: Famotidine TAB* 20 MG PO SCH (09:21)
[2016-12-26] MEDS: clonazePAM TAB(*) 0.5 MG PO SCH ×2 (09:21→19:59)
[2016-12-26] MEDS: Docusate CAP* 100 MG PO SCH ×2 (09:22→20:04)
[2016-12-26] MEDS: Morphine TAB Extended Release (*) 30 MG TAB.ER PO SCH ×3 (09:22→19:59)
[2016-12-26] MEDS: Gabapentin CAP(*) 300 MG PO SCH ×2 (09:22→19:56)
[2016-12-26] MEDS: Insulin LISPRO* 1 UNITS UNIT SUBCUT SCH ×3 (09:22→17:29)
[2016-12-26] MEDS: Citalopram TAB* 40 MG PO SCH (09:22)
[2016-12-26] MEDS: Moisturizing CREAM* 113 GM JAR TOPICAL SCH ×3 (09:24→20:00)
[2016-12-26] MEDS: Hydrocortisone 1% CREAM* 30 GM TUBE TOPICAL SCH ×4 (09:24→20:00)
--- NOTE | 2016-12-26 11:12 | PN ---
Progress Note - Progress Note SOAP: Subjective: []Biopsy confirmed B-cell Lymphoma. At this time localized to L4-5, without other extranodal sites on CT. Pt. feeling well and slept last night. Pain well controlled with TID MS Contin and PRN tramadol. Wants very much to go home. Father in ICU with GI bleed. Medications: Acetaminophen (Tylenol Tab*) 650 mg PO Q4H PRN PRN Reason: FEVER/PAIN Albuterol (Ventolin 2.5 Mg/3 Ml Neb.Clotilde*) 2.5 mg INH Q2H PRN PRN Reason: SOB/WHEEZING Cetirizine HCl (Zyrtec*) 10 mg PO BEDTIME [facility] Last Admin: 12/25/16 20:03 Dose: 10 mg Citalopram Hydrobromide (Celexa Tab*) 40 mg PO DAILY [facility] Last Admin: 12/26/16 09:22 Dose: 40 mg Clonazepam (Klonopin Tab(*)) 0.5 mg PO BID [facility] Last Admin: 12/26/16 09:21 Dose: 0.5 mg Dexamethasone (Decadron Tab*) 8 mg PO BID [facility] Last Admin: 12/26/16 09:21 Dose: 8 mg Dextrose (D50w Syringe 50 Ml*) 12.5 gm IV PUSH .FOR FS < 60 - SS PRN PRN Reason: FS < 60 Docusate Sodium (Colace Cap*) 100 mg PO BID [facility] Last Admin: 12/26/16 09:22 Dose: 100 mg Enoxaparin Sodium (Lovenox(*)) 40 mg SUBCUT Q24H [facility] Last Admin: 12/25/16 19:29 Dose: Not Given Famotidine (Pepcid Tab*) 20 mg PO DAILY [facility] Last Admin: 12/26/16 09:21 Dose: 20 mg Gabapentin (Neurontin Cap(*)) 600 mg PO BID [facility] Last Admin: 12/26/16 09:22 Dose: 600 mg Hydrocortisone (Hytone Cream 1%*) 1 applic TOPICAL QID [facility] Last Admin: 12/26/16 09:24 Dose: 1 applic Hydroxyzine HCl (Atarax Tab*) 25 mg PO Q6H PRN PRN Reason: ITCHING Insulin Human Lispro (Humalog*) 0 units SUBCUT AC [facility] PRN Reason: Protocol Last Admin: 12/26/16 09:22 Dose: 2 units Levalbuterol HCl (Xopenex Hfa Inhaler*) 2 puff INH Q6H PRN PRN Reason: SHORTNESS OF BREATH Levothyroxine Sodium (Synthroid Tab*) 50 mcg PO QAM@0600 [facility] Last Admin: 12/26/16 05:41 Dose: 50 mcg Morphine Sulfate (Morphine Oral.Soln 10 Mg*) 5 mg PO Q6H PRN PRN Reason: PAIN Last Admin: 12/24/16 09:34 Dose: 5 mg Morphine Sulfate (Ms Contin(*)) 30 mg PO TID [facility] Last Admin: 12/26/16 09:22 Dose: 30 mg Multi-Ingredient Ointment (Hydrocerin*) 1 applic TOPICAL TID [facility] Last Admin: 12/26/16 09:24 Dose: 1 applic Ondansetron HCl (Zofran Inj*) 4 mg IV Q6H PRN PRN Reason: NAUSEA Senna (Senokot Tab*) 2 tab PO BEDTIME PRN PRN Reason: CONSTIPATION Last Admin: 12/20/16 21:09 Dose: 2 tab Tramadol HCl (Ultram*) 50 mg PO Q6H PRN PRN Reason: PAIN - MILD TO MODERATE Tramadol HCl (Ultram*) 100 mg PO Q6H PRN PRN Reason: PAIN - MODERATE TO SEVERE Last Admin: 12/25/16 20:02 Dose: 100 mg Trazodone HCl (Desyrel Tab*) 50 mg PO BEDTIME [facility] Last Admin: 12/25/16 20:54 Dose: 50 mg Verapamil HCl (Calan Sr Tab*) 120 mg PO DAILY [facility] Last Admin: 12/26/16 09:21 Dose: 120 mg Objective: [] Vital Signs Temp Pulse Resp BP Pulse Ox 97.6 F 76 16 115/71 97 12/26/16 07:40 12/26/16 07:40 12/26/16 09:22 12/26/16 07:40 12/26/16 07:40 A&Ox3, EOI, HOUSE Resp. even and non-labored Tearful, but communicating clearly and states good understanding of plan of care. Laboratory Results - last 24 hr 12/24/16 12/24/16 12/25/16 05:48 10:15 11:55 POC Glucose (mg/dL) 161 H Total Protein (PEP) 6.7 Albumin (PEP) 3.3 L Albumin/Globulin (PEP) 0.96 Tkbtv-3-Hvdnzxanm 0.3 Zqvvf-3-Mgjxpzpyj 1.2 H Axrd-8-Kftvquvg 1.1 Dkxd-5-Yrrzeplgqcvif 1.86 Gamma Globulins 0.8 M-Jagdish Not Reportable M-Jagdish 2 Not Reportable PEP Impression See comment CA 19-9 Antigen 32 [place] Light Chain 1.37 Lambda Light Chain 0.9000 [place]/Lambda Ratio 1.52 Flow Intrp 2-8 Markers Flow Intrp 9-15 Marker TNP 12/25/16 12/26/16 17:03 08:23 POC Glucose (mg/dL) 125 H 132 H Total Protein (PEP) Albumin (PEP) Albumin/Globulin (PEP) Kplxy-7-Knhdueykz Pglvj-3-Zrllkpmvx Blyl-8-Bhhknjqm Usvz-4-Cwoyqasfxoujt Gamma Globulins M-Jagdish M-Jagdish 2 PEP Impression CA 19-9 Antigen [place] Light Chain Lambda Light Chain [place]/Lambda Ratio Flow Intrp 2-8 Markers Flow Intrp 9-15 Marker Assessment: []66 yo f with newly diagnosed DLBCL with full staging currently pending. Long discussion with pt. and , Melvin, regarding diagnosis and plan of care. Ultimately staging will influence prognosis (bone marrow pending as well as plan for PET RADHA), however goal will be curative with treatment. Reviewed excellent overall survival with average 5yr >50%. Extensive discussion regarding recommendation for chemotherapy with R-CHOP q21 days starting Friday. Reviewed side effects and risks, emphasizing infection prevention and pro- active approach to symptom management. Reassuringly she has a normal LDH and excellent performance status (prior to impingement), though with age >60 and at this time 1 extra tony site likely at least intermediate risk. Plan: []1. Port RADHA 2. Echo today 3. PET Friday AM 4. R-CHOP Friday following PET, teach in chair - printouts reviewed and provided to pt. today 5. D/C today per hospitalist, agree with TID Morphine and PRN Tramadol, suggest Dex 8 mg PO BID through Friday PM and then will start steroid with chemo ( scripts to be sent in by our office). FU Dr. Rivas Friday in chemo for discussion of full staging. >40 min spent with pt. and family, majority of time spent to face to face counseling.
--- NOTE | 2016-12-26 11:16 | PN ---
Subjective Date of Service: 12/26/16 Interval History: Ms. Gonzalez states that her pain is reasonably well controlled and she is looking forward to going home. She denies chest pain, SOB, nausea, or abdominal pain. Family History: Unchanged from Admission Social History: Unchanged from Admission Past Medical History: Unchanged from Admission Objective Active Medications: Acetaminophen (Tylenol Tab*) 650 mg PO Q4H PRN Albuterol (Ventolin 2.5 Mg/3 Ml Neb.Clotilde*) 2.5 mg INH Q2H PRN Cetirizine HCl (Zyrtec*) 10 mg PO BEDTIME [facility] Citalopram Hydrobromide (Celexa Tab*) 40 mg PO DAILY [facility] Clonazepam (Klonopin Tab(*)) 0.5 mg PO BID [facility] Dexamethasone (Decadron Tab*) 8 mg PO BID [facility] Dextrose (D50w Syringe 50 Ml*) 12.5 gm IV PUSH .FOR FS < 60 - SS PRN Docusate Sodium (Colace Cap*) 100 mg PO BID [facility] Enoxaparin Sodium (Lovenox(*)) 40 mg SUBCUT Q24H [facility] Famotidine (Pepcid Tab*) 20 mg PO DAILY [facility] Gabapentin (Neurontin Cap(*)) 600 mg PO BID [facility] Hydrocortisone (Hytone Cream 1%*) 1 applic TOPICAL QID [facility] Hydroxyzine HCl (Atarax Tab*) 25 mg PO Q6H PRN Insulin Human Lispro (Humalog*) 0 units SUBCUT AC [facility] Levalbuterol HCl (Xopenex Hfa Inhaler*) 2 puff INH Q6H PRN Levothyroxine Sodium (Synthroid Tab*) 50 mcg PO QAM@0600 [facility] Morphine Sulfate (Morphine Oral.Soln 10 Mg*) 5 mg PO Q6H PRN Morphine Sulfate (Ms Contin(*)) 30 mg PO TID [facility] Multi-Ingredient Ointment (Hydrocerin*) 1 applic TOPICAL TID [facility] Ondansetron HCl (Zofran Inj*) 4 mg IV Q6H PRN Senna (Senokot Tab*) 2 tab PO BEDTIME PRN Tramadol HCl (Ultram*) 50 mg PO Q6H PRN Trazodone HCl (Desyrel Tab*) 50 mg PO BEDTIME [facility] Verapamil HCl (Calan Sr Tab*) 120 mg PO DAILY [facility] Vital Signs 12/25/16 12/25/16 12/25/16 17:00 17:10 19:00 Temperature 97.8 F Pulse Rate 70 Respiratory 16 16 17 Rate Blood Pressure 133/71 (mmHg) O2 Sat by Pulse 97 Oximetry 12/25/16 12/25/16 12/25/16 19:57 20:00 20:02 Temperature 97.8 F Pulse Rate 73 Respiratory 16 16 17 Rate Blood Pressure 147/77 (mmHg) O2 Sat by Pulse 96 Oximetry 12/25/16 12/25/16 12/25/16 20:53 21:11 22:02 Temperature Pulse Rate 79 Respiratory 19 17 18 Rate Blood Pressure (mmHg) O2 Sat by Pulse 94 Oximetry 12/25/16 12/25/16 12/26/16 22:53 23:40 07:40 Temperature 97.6 F 97.6 F Pulse Rate 64 76 Respiratory 18 17 16 Rate Blood Pressure 134/75 115/71 (mmHg) O2 Sat by Pulse 96 97 Oximetry 12/26/16 12/26/16 09:21 09:22 Temperature Pulse Rate Respiratory 16 16 Rate Blood Pressure (mmHg) O2 Sat by Pulse Oximetry Oxygen Devices in Use Now: None Appearance: Female sitting up in chair in NAD Eyes: No Scleral Icterus Ears/Nose/Mouth/Throat: Mucous Membranes Moist Neck: Trachea Midline Respiratory: Symmetrical Chest Expansion and Respiratory Effort, Clear to Auscultation Cardiovascular: NL Sounds; No Murmurs; No JVD, No Edema Abdominal: NL Sounds; No Tenderness; No Distention Lymphatic: No Cervical Adenopathy Extremities: No Edema Skin: - - papular lesions noted to left thigh, no drainage or open areas noted Neurological: Alert and Oriented x 3, NL Muscle Strength and Tone Nutrition: Taking PO's Result Diagrams: 12/24/16 05:48 12/23/16 06:25 Microbiology and Other Data: Microbiology 12/21/16 06:15 Urine Culture - Final Urine Escherichia Coli Diagnostic Imaging: Lumbar spine MRI: 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 Assess/Plan/Problems-Billing Assessment: Ms. Gonzalez is a 66 yo female with a PMH of hypothyroidism, HTN, DM, asthma, and HLD who presented to the ED on 12/20/16 with concern for back pain and abnormal lumbar spine MRI which revealed a soft tissue mass. - Patient Problems (1) Spinal cord lesion Comment: Pathology found lymphoma. Appreciate oncology and radiation oncology consults. Patient to have port placed and an echocardiogram prior to discharge. Outpatient follow-up with [facility] on Friday for PET scan. Oncology further recommends that patient continue dexamethasone at 8mg po BID until Friday. Pain well controlled on morphine with tramadol prn. (2) Rash Comment: Possible atopic dermatitis, improved. Pruritic, papular rash to lower back, left buttock, and lateral left thigh, rash does cross midline of back. Also noted areas to ankles and shins. Continue prn hydroxyzine, hydrocortisone cream, Eucerin (3) UTI (urinary tract infection) Comment: Completed course of ceftriaxone. (4) Asthma Comment: Stable. Continue prn Xopenex and albuterol. (5) Diabetes mellitus Comment: Controlled, trending up with initiation of dexamethasone, however patient will only be on dexamethasone until Friday. Plan to increase metformin to BID dosing. (6) HLD (hyperlipidemia) Comment: Diet controlled. Continue heart healthy diet. (7) HTN (hypertension) Comment: Normotensive. Continue verapamil. (8) Hypothyroidism Comment: Continue levothyroxine. (9) DVT prophylaxis Comment: MADHURI bill and SCDs, SQ Lovenox Status and Disposition: Inpatient admission. Anticipate dc to home tomorrow.
[2016-12-26] MEDS ORDERED: fentaNYL* 50 MCG/ML 5 ML VIAL (250 MCG VIAL) ONE (12:10)
[2016-12-26] MEDS ORDERED: Midazolam* 1 MG/ML 5 ML VIAL (5 MG) ONE (12:11)
[2016-12-26] MEDS ORDERED: ceFAZolin VIAL(*) 1 GM in NS 0.9% 50 ML* 50 ML IVPB ONE (14:00)
--- NOTE | 2016-12-26 15:34 | RAD ---
INDICATION: chest port placement COMPARISONS: None relevant TECHNIQUE: Fluoroscopy was provided for a vascular access procedure. Total fluoroscopy time is: 3 minutes, 33 seconds FINDINGS: Spot images demonstrate a right-sided chest port with the tip overlying the cavoatrial junction IMPRESSION: FLUOROSCOPY WAS PROVIDED FOR A VASCULAR ACCESS PROCEDURE CPT II Codes: 6045F
[2016-12-26] MEDS: Enoxaparin(*) 40 MG/0.4 ML SYR SUBCUT SCH (17:33)
--- NOTE | 2016-12-26 18:25 | ECHO ---
Patient: DANITZA BARTON [facility] Rec#: [id number] : 1950 Date: 12/26/2016 Age: 66y Height: 162.6 cm / 64.0 in Weight: 88.9 kg / 195.9 lbs Sex: F BSA: 1.9 Room#: 422 Admit Date#: 12/20/2016 Type: Inpatient Referring: Buster OKEEFE,Debbie West Reading: Rey Montes MD Roller Operator: Eusebia Garibay RN RDCS CC: Lori Wilson MD Transthoracic Echocardiogram Indication: Cardiac evaluation prior to chemotherapy BP: 115/71 HR: 64 Rhythm: NSR with PVCs Findings History: HTN, DM, dyslipidemia, asthma, hypothyroidism, anticipating chemotherapy for lumbar spine tumor Technical Comments: The study quality is fair. Completed at 1800. Left Ventricle: The left ventricular chamber size is normal. Mild concentric left ventricular hypertrophy is observed. Global left ventricular wall motion and contractility are within normal limits. There is normal left ventricular systolic function. The estimated ejection fraction is 55-60%. There is an E to A reversal in the mitral valve flow pattern suggestive of diastolic dysfunction. Left Atrium: The left atrial chamber size is normal. Right Ventricle: The right ventricular chamber size and systolic function are within normal limits. The right ventricle wall thickness is mildly increased. Right Atrium: The right atrial cavity size is normal. Aortic Valve: The aortic valve structure is normal. The aortic valve leaflets are mildly thickened. There is no evidence of aortic regurgitation. There is no evidence of aortic stenosis. Mitral Valve: The mitral valve leaflets are mildly thickened. There is mild mitral regurgitation. There is no evidence of mitral stenosis. Tricuspid Valve: The tricuspid valve leaflets are normal. There is trace tricuspid regurgitation. Unable to estimate the right ventricular systolic pressure. Pulmonic Valve: The pulmonic valve appears normal. There is a trace pulmonic regurgitation. There is no pulmonic stenosis. Pericardium: There is no significant pericardial effusion. A pericardial fat pad is visualized. Aorta: There is no dilatation of the ascending aorta. There is no dilatation of the aortic arch. There is mild dilatation of the aortic root. Pulmonary Artery: The main pulmonary artery appears normal. Venous: The inferior vena cava appears normal in size. There is an approximate 50% respiratory change in the inferior vena cava dimension. Summary: There was not any prior study for comparison. Conclusions Mild concentric left ventricular hypertrophy is observed. The estimated ejection fraction is 55-60%. There is an E to A reversal in the mitral valve flow pattern suggestive of diastolic dysfunction. The right ventricle wall thickness is mildly increased. There is mild mitral regurgitation. There is trace tricuspid regurgitation. There is mild dilatation of the aortic root. Measurements Name Value Normal Range RVDdMajor (2D) 3.7 cm (2.2 - 4.4) RVAW (2D) 0.6 cm (0.2 - 0.5) RAd ISD 4CH 4.6 cm (3.4 - 4.9) RA (A4C)W 4.3 cm (2.9 - 4.6) IVSd (2D) 1.2 cm (0.6 - 1) LVPWd (2D) 1.2 cm (0.6 - 1) LVIDd (2D) 4.8 cm (3.6 - 5.4) LVIDs (2D) 3.4 cm - LV FS (2D) 29 % (25 - 45) Aortic Annulus 2 cm (1.4 - 2.6) Ao root diameter (2D) 3.6 cm (2.1 - 3.5) Ascending Ao 3.3 cm (2.1 - 3.4) Aortic arch 2.8 cm (1.8 - 3.4) LA dimension (AP) 2D 3.2 cm (2.3 - 3.8) LAd ISD 4CH 4.2 cm (2.9 - 5.3) LA ISD 4CH W 3.6 cm (2.5 - 4.5) Name Value Normal Range LA ESV SP 4CH (A/L) 38 ml - LA ESV SP 2CH (A/L) 52 ml - LA ESV BP (A/L) 47 ml - LA ESV BP (A/L) index 24.2 ml/m2 - LA ESV SP 4CH (MOD) 34 ml - LA ESV SP 2CH (MOD) 49 ml - Name Value Normal Range MV E-wave Vmax 0.81 m/sec - MV deceleration time 240 msec - MV A-wave Vmax 1 m/sec - MV E:A ratio 0.78 ratio - LV septal e' Vmax 0.11 m/sec - LV lateral e' Vmax 0.12 m/sec - LV E:e' septal ratio 7.4 ratio - LV E:e' lateral ratio 6.8 ratio - Name Value Normal Range AV Vmax 1.5 m/sec - AV VTI 34.7 cm - AV peak gradient 9.3 mmHg - AV mean gradient 5.1 mmHg - LVOT Vmax 1 m/sec - LVOT VTI 23.9 cm - LVOT peak gradient 4.2 mmHg - LVOT mean gradient 2.9 mmHg - CRISTI Vmax 0.72 m/sec - Name Value Normal Range IVC diameter 1.4 cm - Name Value Normal Range PV Vmax 0.85 m/sec -
[2016-12-26] MEDS: traZODone TAB* 50 MG TAB PO SCH (19:57)
[2016-12-26] MEDS: Cetirizine* 10 MG TAB PO SCH (19:59)
--- NOTE | 2016-12-26 22:40 | DS ---
CC: Dr. Lori Wilson; Dr. Suleman Rivas * [facility] MEDICINE DISCHARGE SUMMARY: DATE OF ADMISSION: 12/20/16 DATE OF DISCHARGE: 12/27/16 PRIMARY CARE PHYSICIAN: Dr. Lori Wilson. ATTENDING PHYSICIAN: Dr. Bette Egan * (dictation provided by Nimco Walters NP ) PRIMARY DIAGNOSIS: Spinal mass, lymphoma. SECONDARY DIAGNOSES: 1. Hypothyroidism. 2. Hypertension. 3. Type 2 diabetes, non-insulin dependent. 4. Asthma. 5. Hyperlipidemia. PAST SURGICAL HISTORY: History of cervical spine fusion. MEDICATIONS: At the time of discharge are: 1. Morphine extended release tab 30 mg p.o. t.i.d. 2. Tramadol 100 mg p.o. q.6 hours p.r.n. pain. 3. Cetirizine 10 mg p.o. at bedtime. 4. Citalopram 40 mg p.o. daily. 5. Dexamethasone 8 mg p.o. b.i.d. until followup with Dr. Rivas. 6. Docusate 100 mg p.o. b.i.d. 7. Famotidine 20 mg p.o. daily. 8. Gabapentin 600 mg p.o. b.i.d. 9. Levothyroxine 50 mcg p.o. daily. 10. Senna 2 tabs p.o. at bedtime. 11. Verapamil 120 mg p.o. daily. 12. Clonazepam 0.5 mg p.o. b.i.d. 13. Hydroxyzine p.r.n. 14. Trazodone 50 mg p.o. at bedtime. 15. Morphine IR 10mg p.o. q.6 hours p.r.n. pain. HOSPITAL COURSE: Ms. Gonzalez is a 66-year-old female who presented to the hospital on 12/20/16 with concern for back pain. Please see the dictated H and P from Dk Villaseñor NP for complete details. In brief, the patient had reported that she had had about a year of pain associated with a rash to her left lower extremity. On the day of admission, she had had an outpatient MRI evaluation of this pain and was found to have a tumor in the L5 area and therefore was encouraged to come to the emergency room for further evaluation and treatment. The patient was seen in consultation by Dr. Combs and Dr. Rivas. I refer you to their notes for complete details. Plans are made for a CT-guided biopsy with Interventional Radiology. The patient had the biopsy on 12/23/16. Pathology report is now available and confirms T-cell-rich large B-cell lymphoma. Bone marrow biopsy was performed on 12/24/16, those results are pending. Ms. Gonzalez has been started on MS Contin with tramadol and an increased of her gabapentin with good improvement in her pain control. She has had a port placed today for infusion of chemotherapy as well as a transthoracic echocardiogram prior to her discharge. She will be continued on dexamethasone 8 mg twice daily until Friday when she will follow up with Dr. Rivas for PET scan and initiation of treatment. I will note that during the hospitalization, Ms. Gonzalez did have urinalysis which was positive and UA that ultimately grew E. coli. She was treated with 5 days of ceftriaxone. Ms. Gonzalez is doing well today and she is medically stable to discharge to home with close followup with Oncology on Friday. DISPOSITION: Home. DIET: Consistent carbohydrate. ACTIVITY: As tolerated with physical therapy at home. FOLLOWUP PLANS: Please follow up with Dr. Rivas on Friday for PET scan. TIME SPENT: Approximately 60 minutes was spent on the discharge of this patient , more than half the time spent with the patient at the bedside reviewing the events leading up to this hospitalization, performing the physical examination, and reviewing the discharge plan. NIMCO WALTERS NP [id number]/[facility] #: [id number] MYLES
[2016-12-27] MEDS: Levothyroxine TAB* 50 MCG TAB PO SCH (05:59)
[2016-12-27] MEDS: Insulin LISPRO* 1 UNITS UNIT SUBCUT SCH (08:01)
[2016-12-27] MEDS: Verapamil SR TAB* 240 MG PO SCH (09:47)
[2016-12-27] MEDS: Gabapentin CAP(*) 300 MG PO SCH (09:48)
[2016-12-27] MEDS: Famotidine TAB* 20 MG PO SCH (09:49)
[2016-12-27] MEDS: Citalopram TAB* 40 MG PO SCH (09:49)
[2016-12-27] MEDS: Docusate CAP* 100 MG PO SCH (09:50)
[2016-12-27] MEDS: Dexamethasone TAB* 4 MG PO SCH (09:50)
[2016-12-27] MEDS: clonazePAM TAB(*) 0.5 MG PO SCH (09:50)
[2016-12-27] MEDS: Morphine TAB Extended Release (*) 30 MG TAB.ER PO SCH (09:51)
[2016-12-27] MEDS: Moisturizing CREAM* 113 GM JAR TOPICAL SCH (09:52)
[2016-12-27] MEDS: Hydrocortisone 1% CREAM* 30 GM TUBE TOPICAL SCH (09:52)
--- NOTE | 2016-12-27 10:18 | PN ---
Subjective Date of Service: 12/27/16 Interval History: Ms. Gonzalez states that she is feeling relatively well overall though she still has pain with ambulation. She denies other complaint including chest pain, SOB , nausea, or abdominal pain and is eager for discharge to home. Family History: Unchanged from Admission Social History: Unchanged from Admission Past Medical History: Unchanged from Admission Objective Active Medications: Acetaminophen (Tylenol Tab*) 650 mg PO Q4H PRN Albuterol (Ventolin 2.5 Mg/3 Ml Neb.Clotilde*) 2.5 mg INH Q2H PRN Cetirizine HCl (Zyrtec*) 10 mg PO BEDTIME TAYLOR Citalopram Hydrobromide (Celexa Tab*) 40 mg PO DAILY TAYLOR Clonazepam (Klonopin Tab(*)) 0.5 mg PO BID TAYLOR Dexamethasone (Decadron Tab*) 8 mg PO BID TAYLOR Docusate Sodium (Colace Cap*) 100 mg PO BID TAYLOR Enoxaparin Sodium (Lovenox(*)) 40 mg SUBCUT Q24H TAYLOR Famotidine (Pepcid Tab*) 20 mg PO DAILY TAYLOR Gabapentin (Neurontin Cap(*)) 600 mg PO BID TAYLOR Hydrocortisone (Hytone Cream 1%*) 1 applic TOPICAL QID TAYLOR Hydroxyzine HCl (Atarax Tab*) 25 mg PO Q6H PRN Insulin Human Lispro (Humalog*) 0 units SUBCUT AC TAYLOR Levalbuterol HCl (Xopenex Hfa Inhaler*) 2 puff INH Q6H PRN Levothyroxine Sodium (Synthroid Tab*) 50 mcg PO QAM@0600 [facility] Morphine Sulfate (Morphine Oral.Soln 10 Mg*) 5 mg PO Q6H PRN Morphine Sulfate (Ms Contin(*)) 30 mg PO TID [facility] Multi-Ingredient Ointment (Hydrocerin*) 1 applic TOPICAL TID TAYLOR Ondansetron HCl (Zofran Inj*) 4 mg IV Q6H PRN Senna (Senokot Tab*) 2 tab PO BEDTIME PRN Tramadol HCl (Ultram*) 50 mg PO Q6H PRN Tramadol HCl (Ultram*) 100 mg PO Q6H PRN Trazodone HCl (Desyrel Tab*) 50 mg PO BEDTIME TAYLOR Verapamil HCl (Calan Sr Tab*) 120 mg PO DAILY [facility] Vital Signs 12/26/16 12/26/16 12/26/16 11:20 15:49 15:58 Temperature 98.0 F Pulse Rate 75 Respiratory 16 14 16 Rate Blood Pressure 128/80 (mmHg) O2 Sat by Pulse 97 Oximetry 12/26/16 12/26/16 12/26/16 16:04 17:56 19:56 Temperature Pulse Rate Respiratory 16 16 16 Rate Blood Pressure (mmHg) O2 Sat by Pulse Oximetry 12/26/16 12/26/16 12/26/16 19:59 20:00 21:56 Temperature Pulse Rate Respiratory 16 20 16 Rate Blood Pressure (mmHg) O2 Sat by Pulse Oximetry 12/26/16 12/27/16 12/27/16 23:01 04:31 09:19 Temperature 97.5 F 97.8 F Pulse Rate 58 56 62 Respiratory 16 16 14 Rate Blood Pressure 115/67 133/69 (mmHg) O2 Sat by Pulse 98 96 96 Oximetry 12/27/16 12/27/16 12/27/16 09:48 09:50 09:51 Temperature Pulse Rate Respiratory 16 66 16 Rate Blood Pressure (mmHg) O2 Sat by Pulse Oximetry Oxygen Devices in Use Now: None Appearance: Female sitting up in chair in NAD Eyes: No Scleral Icterus Ears/Nose/Mouth/Throat: Mucous Membranes Moist Neck: Trachea Midline Respiratory: Symmetrical Chest Expansion and Respiratory Effort, Clear to Auscultation Cardiovascular: NL Sounds; No Murmurs; No JVD, No Edema Abdominal: No Hepatosplenomegaly Extremities: No Edema Skin: No Rash or Ulcers Neurological: Alert and Oriented x 3, NL Muscle Strength and Tone Nutrition: Taking PO's Result Diagrams: 12/24/16 05:48 12/23/16 06:25 Microbiology and Other Data: Microbiology 12/21/16 06:15 Urine Culture - Final Urine Escherichia Coli Diagnostic Imaging: Lumbar spine MRI: 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 Assess/Plan/Problems-Billing Assessment: Ms. Gonzalez is a 66 yo female with a PMH of hypothyroidism, HTN, DM, asthma, and HLD who presented to the ED on 12/20/16 with concern for back pain and abnormal lumbar spine MRI which revealed a soft tissue mass. - Patient Problems (1) Spinal cord lesion Comment: Pathology found lymphoma. Appreciate oncology and radiation oncology consults. Patient to have port placed and an echocardiogram prior to discharge. Outpatient follow-up with [facility] on Friday for PET scan. Oncology further recommends that patient continue dexamethasone at 8mg po BID until Friday. Pain well controlled on ms contin with morphine IR prn. (2) Rash Comment: Possible atopic dermatitis, improved. Pruritic, papular rash to lower back, left buttock, and lateral left thigh, rash does cross midline of back. Also noted areas to ankles and shins. Continue prn hydroxyzine, hydrocortisone cream, Eucerin (3) UTI (urinary tract infection) Comment: Completed course of ceftriaxone. (4) Asthma Comment: Stable. Continue prn Xopenex and albuterol. (5) Diabetes mellitus Comment: Controlled, trending up with initiation of dexamethasone, however patient will only be on dexamethasone until Friday. Plan to increase metformin to BID dosing. (6) HLD (hyperlipidemia) Comment: Diet controlled. Continue heart healthy diet. (7) HTN (hypertension) Comment: Normotensive. Continue verapamil. (8) Hypothyroidism Comment: Continue levothyroxine. (9) DVT prophylaxis Comment: MADHURI bill and SCDs, SQ Lovenox Status and Disposition: Inpatient admission. Discharge to home.
[2016-12-27 12:26] VITALS: BP 129/72
== END 2016-12-27 12:20 | disposition home or self-care (01) | DRG 691 ==
LOC: ED 08:50 → MED 14:54
PROVIDERS: ADMIT Internal Medicine; ATTEND Internal Medicine
PROC: 0QB03ZX Excision of Lumbar Vertebra, Percutaneous Approach, Diagnostic (ICD-10-PCS; 2016-12-20)
PROC: 0Q903ZX Drainage of Lumbar Vertebra, Percutaneous Approach, Diagnostic (ICD-10-PCS; 2016-12-20)
PROC: 07DR3ZX Extraction of Iliac Bone Marrow, Percutaneous Approach, Diagnostic (ICD-10-PCS; 2016-12-24)
PROC: 0JH60WZ Insertion of Totally Implantable Vascular Access Device into Chest Subcutaneous Tissue and Fascia, Open Approach (ICD-10-PCS; principal; 2016-12-26)
PROC: 05HM33Z Insertion of Infusion Device into Right Internal Jugular Vein, Percutaneous Approach (ICD-10-PCS; 2016-12-26)
PROC: B513ZZA Fluoroscopy of Right Jugular Veins, Guidance (ICD-10-PCS; 2016-12-26)
DX: C83.30 Diffuse large B-cell lymphoma, unspecified site (principal); N39.0 Urinary tract infection, site not specified; I10 Essential (primary) hypertension; E11.9 Type 2 diabetes mellitus without complications; B96.20 Unspecified Escherichia coli [E. coli] as the cause of diseases classified elsewhere; E03.9 Hypothyroidism, unspecified; I25.10 Atherosclerotic heart disease of native coronary artery without angina pectoris; J45.909 Unspecified asthma, uncomplicated; K21.9 Gastro-esophageal reflux disease without esophagitis; M79.7 Fibromyalgia; F41.9 Anxiety disorder, unspecified; F32.9 Major depressive disorder, single episode, unspecified; E66.9 Obesity, unspecified; R40.2412 Glasgow coma scale score 13-15, at arrival to emergency department; E78.5 Hyperlipidemia, unspecified; R21 Rash and other nonspecific skin eruption; M19.90 Unspecified osteoarthritis, unspecified site; Z88.1 Allergy status to other antibiotic agents; Z88.8 Allergy status to other drugs, medicaments and biological substances; Z88.5 Allergy status to narcotic agent; Z98.1 Arthrodesis status; Z72.89 Other problems related to lifestyle; Z56.0 Unemployment, unspecified; Z68.33 Body mass index [BMI] 33.0-33.9, adult; Z80.3 Family history of malignant neoplasm of breast; Z80.0 Family history of malignant neoplasm of digestive organs; Z80.8 Family history of malignant neoplasm of other organs or systems; Z79.891 Long term (current) use of opiate analgesic
CPT/HCPCS: 20225; 36415; 36561; 71260; 72148; 74177; 76937; 77001; 77012; 80048; 80053; 81003; 81015; 82232; 82270; 82378; 83615; 83883; 84155; 84165; 85025; 85097; 85610; 85652; 85730; 86140; 86301; 86304; 87077; 87086; 87186; 88172; 88173; 88184; 88187; 88188; 88305; 88311; 88313; 93005; 93306; 94760; 99223; 99232; 99233; A9270-GY; C1788; J0690; J0696; J1100; J1642; J1650; J2250; J2270; J2405; J3010; Q9967

== ENCOUNTER 2018-02-27 10:21 | Day surgery (SDC) | payer MEDICARE, BC ==
[~2018-02-27 10:21] MED LIST: Buffered Lidocaine 0.9% SYRIN* 5 ML/SYR SYRINGE INTRADERM ONE; DiMENhydriNATE IV* 50 MG/ML VIAL IV PUSH ONE; DiMENhydriNATE IV* 50 MG/ML VIAL ONE; Famotidine IV* 10 MG/ML 2 ML (20 mg) IV ONE; Famotidine IV* 10 MG/ML 2 ML (20 mg) ONE; Lidocaine 1% INJ* 10 MG/ML 30 ML SDV ONE; Naloxone* 0.4 MG/ML 1 ML VIAL IV PRN; Ondansetron ODT TAB* 4 MG ONE; Ondansetron TAB* 4 MG PO ONE; PROCHLORPERAZINE INJ 5 MG/ML 2 ML VIAL IV PRN; Scopolamine 1.5 mg* PATCH ONE; Scopolamine 1.5 mg* PATCH TRANSDERM ONE; oxyCODONE/Acetamin 5/325 MG* TAB PO PRN
[2018-02-27] MEDS ORDERED: Midazolam* 1 MG/ML 5 ML VIAL (5 MG) ONE (11:34)
[2018-02-27] MEDS ORDERED: fentaNYL* 50 MCG/ML 2 ML VIAL (100 MCG VIAL) ONE (11:34)
[2018-02-27] MEDS ORDERED: Ketorolac INJ* 30 MG/ML 1 ML VIAL ONE (12:27)
[2018-02-27] MEDS ORDERED: Propofol* 10 MG/ML 20 ML BTL IV PUSH ONE (12:27)
[2018-02-27 13:30] VITALS: BP 120/82
--- NOTE | 2018-02-27 21:48 | OP ---
DATE OF OPERATION: 02/27/18 [facility] DATE OF : 54 SURGEON: Macy Corado MD SLPS: BLADIMIR Lira ANESTHESIA: Local MAC. PRE-OP DIAGNOSIS: Left carpal tunnel syndrome and left de Quervain's tenosynovitis. POST-OP DIAGNOSIS: Left carpal tunnel syndrome and left de Quervain's tenosynovitis. OPERATIVE PROCEDURE: Left carpal tunnel release and left de Quervain's release. ESTIMATED BLOOD LOSS: Zero. TOURNIQUET TIME: About 15 minutes. INDICATIONS FOR PROCEDURE: Dulce is a 67-year-old woman with numbness and tingling in the median nerve distribution of her left hand and pain at the radial aspect of her left wrist with a positive Swetha's test. She presents for de Quervain's release and carpal tunnel release on the left. DESCRIPTION OF PROCEDURE: The patient was brought to the operating room, given a sedation anesthetic and a local infiltration of 10 cc of 1% plain lidocaine at the radial styloid and an additional 10 cc of 1% plain lidocaine in the palm of the left hand. The skin of her left hand and forearm was prepped and draped in the usual sterile fashion. The hand and forearm were exsanguinated and the tourniquet elevated to 250 mmHg. A longitudinal incision was made centered at the radial styloid and dissected bluntly through the subcutaneous tissue, branches of the radial sensory nerve were located and retracted by the registered nurse surgical services, Evelin Betts. The first compartment tendons were completely released by incising the first compartment which had 2 separate sheaths for the APL and EBP tendons. There was moderate amount of tenosynovitis surrounding the tendons. The wound was irrigated and the skin edges reapproximated with 4- 0 nylon suture. A longitudinal incision was made in the palm in line with the ring finger. We dissected sharply through the subcutaneous tissue down to the transverse carpal ligament. The ligament was incised and completely released with the knife and then more proximally with the scissors. The nerve roots were dissected free from the surrounding tissue and there was an area with significant compression at the mid portion of ligaments. The wound was irrigated and the skin edges reapproximated with 4-0 nylon suture. The wound was dressed with Xeroform, 4x4 , Webril, and an Robert wrap. The patient tolerated the procedure well and was brought to the recovery room in good condition. [id number]/[facility] #: [id number] MTDD
[2018-03-02] MEDS ORDERED: Scopolamine PATCH Remove* 1 NOTE MISC PATCH OFF ONE (06:00)
== END 2018-02-27 13:26 | disposition home or self-care (01) ==
LOC: OREAST 10:21
PROVIDERS: ATTEND Orthopaedic Surgery
DX: G56.02 Carpal tunnel syndrome, left upper limb (principal); M65.4 Radial styloid tenosynovitis [de Quervain]; E11.9 Type 2 diabetes mellitus without complications; Z79.84 Long term (current) use of oral hypoglycemic drugs; I10 Essential (primary) hypertension; J45.909 Unspecified asthma, uncomplicated; E03.9 Hypothyroidism, unspecified; F41.9 Anxiety disorder, unspecified; E78.5 Hyperlipidemia, unspecified; Z85.72 Personal history of non-Hodgkin lymphomas
CPT/HCPCS: A9270-GY; J1240; J1885; J2250; J2704; J3010